=== PATIENT | male | born 1955 | race Caucasian/White ===

== ENCOUNTER 2017-05-26 19:44 | Emergency (ER) | payer BC ==
[~2017-05-26] VITALS: Ht 172.7 cm; Wt 71.7 kg
[2017-05-26 19:55] VITALS: BP 156/83
--- NOTE | 2017-05-26 20:11 | NUR ---
patient states he does not want to wait for a bed, and wants to leave [facility] to go to another hospital
--- NOTE | 2017-05-26 20:47 | NUR ---
called pt in wr, no reponse
--- NOTE | 2017-05-26 21:00 | NUR ---
CALLED FOR PT IN WR. NO RESPNSE. INFORMED BY ADMITTING STAFF PT LEFT.
== END 2017-05-26 21:01 | disposition left against medical advice (07) ==
LOC: ER 19:47
DX: Z53.21 Procedure and treatment not carried out due to patient leaving prior to being seen by health care provider (principal)
CPT/HCPCS: A4606; Z7610

== ENCOUNTER 2020-11-21 20:57 | Emergency (ER) | payer BC, MEDICARE ==
[~2020-11-21] VITALS: Ht 170.2 cm; Wt 68.0 kg
[~2020-11-21 20:57] MED LIST: CARI350T PO; DEXL60CA3 PO; DIPH50VI14 IV; HYDR-4077 PO; HYDR2DIS IV; HYDR8TAB2 PO; LACT1CAP72 PO; LORA2TAB95 PO; LORA2VIA11 IV; MINO2.5T PO; MINO2.5T2 PO; ONDA4VIA52 IV; TADA20TA PO; ZOLP10TA2 PO
--- NOTE | 2020-11-21 21:03 | NUR ---
LINDSEY FROM HOME FOR C/O L SIDED CP 02/12 SINCE LAST NIGHT. PT REPORTED PAIN RADIATING TO THE HEAD. DENIED SOB OR N/V. PT ALSO ENDORSE HE HAS RAN OUT OF DILAUDID WHICH HE IS ROUTINELY TAKING FOR "CHRONINC GNERALIZED BODY PAIN" PT WAS PLACED IN BED 10 ER , ON MONITOR. AWAITING FOR MD'S ASSESSMENT AND ORDERS.
[2020-11-21 22:14] LABS: BASOPHILS % (AUTO) 0.6 % (0.0-2.0); EOSINOPHILS % (AUTO) 0.6 % (0.0-6.0); HEMATOCRIT 34 % (39-51); HEMOGLOBIN 11.4 g/dL (13.5-17.5); LYMPHOCYTES # (AUTO) 0.8 /CMM (0.8-4.8); LYMPHOCYTES % (AUTO) 19.3 % (20.0-44.0); MEAN CORPUSCULAR HGB CONC 33 g/dl (31.0-36.0); MEAN CORPUSCULAR VOLUME 87 fL (80-96); MONOCYTES # (AUTO) 0.4 /CMM (0.1-1.30); MONOCYTES % (AUTO) 10.1 % (2.0-12.0); NEUTROPHILS # (AUTO) 2.9 /CMM (1.8-8.9); NEUTROPHILS % (AUTO) 69.4 % (43.0-81.0); PLATELET COUNT (AUTO) 230 /CMM (150-450); RED BLOOD CELL COUNT(AUTO) 3.96 MIL/uL (4.5-6.0); WHITE BLOOD COUNT (AUTO) 4.2 K/uL (4.3-11.0)
[2020-11-21 22:41] LABS: ALBUMIN 3.5 g/dL (3.4-5.0); BILIRUBIN,DIRECT 0.1 mg/dL (0.0-0.2); BILIRUBIN,TOTAL 0.3 mg/dL (0.2-1.0); CALCIUM, SERUM 8.8 mg/dL (8.5-10.1); TOTAL PROTEIN, SERUM 7.6 g/dL (6.4-8.2)
--- NOTE | 2020-11-21 22:45 | NUR ---
BROUGHT TO CT AND BACK
[2020-11-22] VITALS: BP 151/73
--- NOTE | 2020-11-22 | NUR ---
PT DENIES ANY PAIN, VSS.
--- NOTE | 2020-11-22 01:05 | NUR ---
Patient does not wish to proceed with medical care recommended by Dr. Lancaster. Patient given information related to possible complications, up to and including , which could occur as a result of leaving the hospital at this time. Patient verbalizes understanding of risks involved due to leaving against medical advice. Patient has signed AMA form.
== END 2020-11-22 01:07 | disposition left against medical advice (07) ==
LOC: ER 20:58 → UNDOADMIN 11-22 00:47 → TELE 11-22 00:47
DX: R07.9 Chest pain, unspecified (principal); Z20.822 Contact with and (suspected) exposure to COVID-19; I10 Essential (primary) hypertension; D80.2 Selective deficiency of immunoglobulin A [IgA]; R94.31 Abnormal electrocardiogram [ECG] [EKG]
CPT/HCPCS: 36415; 71045; 74176; 80048; 80076; 83880; 84484; 85025; 87081; 87426; 93005; 99285; C9803

== ENCOUNTER 2020-11-30 20:02 | Inpatient (IN) | payer MEDICARE, BC ==
[~2020-11-30] VITALS: Ht 170.2 cm; Wt 54.9 kg
--- NOTE | 2020-11-30 20:48 | NUR ---
LINDSEY FROM HOME TO ER BED 14. AAOX4. NOT IN RESP DISTRESS, BRETHING EVEN AND UNLABORED. BROUGHT IN FOR A MID-LEFT CHEST PAIN FOR THE PAST 9 DAYS. ACCORDING TO PT, THIS EPISODE STARTED LAST NIGHT. PAIN IS INTERMITENT AND RADIAITING TO LEFT ARM. PT WAS HERE ON THURSDAY TO BE ADMITTED FOR THE SAME REASON BUT HE WENT AMA. WAS AT THE BEDSIDE FOR EVAL. ORDERS RECEIVED, NOTED AND CARRIED OUT. IV LINE IS ESTABLISHED ON L WRIST 20G. BLOOD DRAWN AND GIVEN TO PHLEB. PT ON MONITOR.
[2020-11-30 20:50] VITALS: BP 163/87
[2020-11-30 20:53] LABS: CREATININE 1.1 mg/dL (0.6-1.3); POTASSIUM 4.1 mmol/L (3.5-5.1)
--- NOTE | 2020-11-30 21:10 | NUR ---
CALLED FOR COVID SWAB
[2020-11-30 21:16] LABS: HEMATOCRIT 36 % (39-51); LYMPHOCYTES # (AUTO) 0.7 /CMM (0.8-4.8); MONOCYTES # (AUTO) 0.4 /CMM (0.1-1.30); NEUTROPHILS # (AUTO) 4.1 /CMM (1.8-8.9); WHITE BLOOD COUNT (AUTO) 5.3 K/uL (4.3-11.0)
[2020-11-30 21:18] LABS: BASOPHILS % (AUTO) 0.6 % (0.0-2.0); HEMOGLOBIN 12.2 g/dL (13.5-17.5); LYMPHOCYTES % (AUTO) 14.1 % (20.0-44.0); MEAN CORPUSCULAR HGB CONC 34 g/dl (31.0-36.0); MEAN CORPUSCULAR VOLUME 86 fL (80-96); NEUTROPHILS % (AUTO) 77.3 % (43.0-81.0); PLATELET COUNT (AUTO) 222 /CMM (150-450); RED BLOOD CELL COUNT(AUTO) 4.18 MIL/uL (4.5-6.0)
--- NOTE | 2020-11-30 21:21 | NUR ---
COVID SWABBED, SENT TO LAB
--- NOTE | 2020-11-30 22:16 | NUR ---
CALL FROM LAB. RAPID COVID NEGATIVE.
--- NOTE | 2020-11-30 22:51 | NUR ---
TELE 113-1
[2020-11-30] MEDS ORDERED: ACETAMINOPHEN 325 MG TABLET PO PRN (23:00)
[2020-11-30] MEDS ORDERED: ONDANSETRON HCL/PF 4 MG/2 ML VIAL IVP PRN (23:00)
[2020-11-30] MEDS ORDERED: HYDROMORPHONE INJ 2 MG/ML DISP.SYRIN IV PRN (23:00)
[2020-11-30] MEDS ORDERED: CARISOPRODOL 350 MG TABLET PO PRN (23:00)
[2020-11-30] MEDS ORDERED: Z GUARD REMEDY 2 OZ OINT TP PRN (23:00)
[2020-11-30] MEDS ORDERED: MAGNESIUM HYDROXIDE 30 ML UDC PO PRN (23:00)
[2020-11-30] MEDS ORDERED: MAG HYDROX/AL HYDROX/SIMETH 30 ML UDC PO PRN (23:00)
[2020-11-30] MEDS ORDERED: HOME MED MISCELLANEOUS XX SCH (23:00)
[2020-11-30] MEDS ORDERED: TEMAZEPAM 15 MG CAPSULE PO PRN (23:00)
--- NOTE | 2020-11-30 23:16 | NUR ---
REPORT GIVEN TO EUN KENNEY FOR MARCELA
--- NOTE | 2020-11-30 23:37 | NUR ---
pt transproted to unit on [facility]on[facility] sewell emt and rn at bedside w/ acls protocol. nad noted during transport.
--- NOTE | 2020-12-01 00:15 | NUR ---
RN NOTE 11/30/20 3039 - RECEIVED PT FROM ER, ADMITTED TO [facility] WITH DX OF CHEST PAIN AND POSSIBLE ACS. PT COMPLAINING OF SEVERE PAIN 9/10 ON LEFT CHEST RADIATING TO LEFT ARM AND SHOULDER AND ALSO CRAMPS ON BILATERAL LEGS. DILAUDID 1MG IVP GIVEN ORDERED. PT VS BP 137/83 R 20 P 73 T 98.4. EXTERNAL TELE MONITOR APPLIED, WITH SINUS RHYTHM READING. SKIN CLEAR, INTACT. ALL SAFETY MEASURES IMPLEMENTED PER PROTOCOL. CALL LIGHT WITHIN REACH.
--- NOTE | 2020-12-01 01:00 | NUR ---
RN NOTE PT STILL COMPLAINS OF PAIN, PER PT IT DID NOT RELIEVED HIM AT ALL. SPOKE TO PT'S DAUGHTER MYLENE EARLIER REGARDING PT CHRONIC PAIN AND TAKING DILAUDID PO 8MG 4X A DAY AT HOME. SOMA 350MG PRN GIVEN. AUTO TRANSPORT DRIVER LEA NOTIFIED ABOUT THE PAIN AND AND THE DOSE OF DILAUDID AT HOME, AUTO TRANSPORT DRIVER DID NOT ORDER ADDITIONAL DOSE OF DILAUDID. PER AUTO TRANSPORT DRIVER, CONSULT WITH PAIN MANAGEMENT DOCTOR.
--- NOTE | 2020-12-01 01:32 | NUR ---
RN NOTE PATIENT SIGNED AGAINST MEDICAL ADVICE. CARLY DENISE NOTIFIED. PT PICKED UP BY DAUGHTER. NO DISTRESS NOTED. ALL BELONGINGS WERE SENT INCLUDING PHONE, WATCH AND NECKLACE.
[2020-12-01] MEDS ORDERED: PANTOPRAZOLE 40 MG TABLET.DR PO SCH (07:30)
[2020-12-01] MEDS ORDERED: ENOXAPARIN SODIUM 40 MG/0.4 ML DISP.SYRIN SQ SCH (09:00)
[2020-12-01] MEDS ORDERED: hydrALAZINE HCL 50 MG TABLET PO SCH (09:00)
[2020-12-01] MEDS ORDERED: MINOXIDIL (2.5MG) 2.5 MG TABLET PO SCH (09:00)
== END 2020-12-01 01:32 | disposition left against medical advice (07) | DRG 311 ==
LOC: ER 20:04 → TELE1 23:24
PROVIDERS: ADMIT Nurse Practitioner Acute Care; ATTEND Nurse Practitioner Acute Care
DX: I24.9 Acute ischemic heart disease, unspecified (principal); D83.9 Common variable immunodeficiency, unspecified; E87.2 Acidosis; F13.20 Sedative, hypnotic or anxiolytic dependence, uncomplicated; R07.9 Chest pain, unspecified; D63.8 Anemia in other chronic diseases classified elsewhere; F32.9 Major depressive disorder, single episode, unspecified; I10 Essential (primary) hypertension; K57.90 Diverticulosis of intestine, part unspecified, without perforation or abscess without bleeding; M19.90 Unspecified osteoarthritis, unspecified site; Z20.822 Contact with and (suspected) exposure to COVID-19; G89.4 Chronic pain syndrome; M48.00 Spinal stenosis, site unspecified; Z82.49 Family history of ischemic heart disease and other diseases of the circulatory system
CPT/HCPCS: 36415; 71045-TC; 80048-TC; 84484-TC; 85025-TC; 87081-TC; C9803; G0378; J1170

== ENCOUNTER 2021-02-21 22:24 | Inpatient (IN) | payer MEDICARE, BC ==
[~2021-02-21] VITALS: Ht 170.2 cm; Wt 50.4 kg
--- NOTE | 2021-02-21 22:35 | NUR ---
PT BIBRA 102 FROM HOME DAUGHTER STATES HE HAD A "POSSIBLE SEIZURE" SHE STATES THAT SHE "SAW HIM FOAMING AT MOUTH AND MUSCLES TENSES WITH JERKING". PT ALERT ORIENTED X2. SEIZURE PRECAUTIONS GIVEN. PT COMPLAINTS OF SOB. GIVEN O2 ORDERED.
[2021-02-21] MEDS ORDERED: ONDANSETRON HCL/PF 4 MG/2 ML VIAL ONE (22:55)
[2021-02-21] MEDS ORDERED: IV NS 0.9% 500 ML BAG IV ONE (23:00)
[2021-02-21] MEDS ORDERED: ONDANSETRON HCL/PF 4 MG/2 ML VIAL IVP ONE (23:00)
--- NOTE | 2021-02-21 23:00 | NUR ---
PT WENT TO CT
[2021-02-21 23:08] LABS: BASOPHILS % (AUTO) 0.4 % (0.0-2.0); HEMATOCRIT 34 % (39-51); HEMOGLOBIN 11.4 g/dL (13.5-17.5); LYMPHOCYTES # (AUTO) 0.5 K/uL (0.8-4.8); LYMPHOCYTES % (AUTO) 6.6 % (20.0-44.0); MEAN CORPUSCULAR HGB CONC 33 g/dl (31.0-36.0); MEAN CORPUSCULAR VOLUME 85 fL (80-96); MONOCYTES # (AUTO) 0.1 K/uL (0.1-1.30); MONOCYTES % (AUTO) 1.1 % (2.0-12.0); NEUTROPHILS # (AUTO) 7.2 K/uL (1.8-8.9); NEUTROPHILS % (AUTO) 91.9 % (43.0-81.0); PLATELET COUNT (AUTO) 298 K/uL (150-450); RED BLOOD CELL COUNT(AUTO) 4.01 MIL/uL (4.5-6.0); WHITE BLOOD COUNT (AUTO) 7.8 K/uL (4.3-11.0)
[2021-02-21 23:23] LABS: ALANINE AMINOTRANSFERASE 22 U/L (12-78); ALBUMIN 3.9 g/dL (3.4-5.0); ALCOHOL, BLOOD < 3 mg/dL (0-0); ALKALINE PHOSPHATASE 76 U/L (46-116); ASPARTATE AMINOTRANSFERASE 16 U/L (15-37); BILIRUBIN,DIRECT 0.1 mg/dL (0.0-0.2); BILIRUBIN,TOTAL 0.3 mg/dL (0.2-1.0); CALCIUM, SERUM 8.7 mg/dL (8.5-10.1); CARBON DIOXIDE 24 mmol/L (21-32); CHLORIDE 103 mmol/L (98-107); CREATININE 1.6 mg/dL (0.6-1.3); GLUCOSE 189 mg/dL (74-106); POTASSIUM 4.9 mmol/L (3.5-5.1); SODIUM SERUM 138 mmol/L (136-145); TOTAL PROTEIN, SERUM 8.6 g/dL (6.4-8.2); UREA NITROGEN, BLOOD 17 mg/dL (7-18)
--- NOTE | 2021-02-21 23:24 | NUR ---
PT UNABLE TO GIVE URINE SAMPLE. OFFERED A CATHETER TO COLLECT URINE, BUT PT REFUSES. NOTIFIED.
[2021-02-21 23:26] LABS: ACETAMINOPHEN < 2 ug/ml (10-30)
[2021-02-21 23:35] LABS: SERUM AMMONIA < 10 umol/L (11-32)
--- NOTE | 2021-02-22 02:00 | NUR ---
URINE COLLECTED AND SENT TO LAB
[2021-02-22 02:19] LABS: BILIRUBIN,URINE Negative (NEGATIVE); COLOR,URINE YELLOW (YELLOW); LEUKOCYTE ESTERASE ,URINE Negative (NEGATIVE); NITRITE, URINE Negative (NEGATIVE); PROTEIN,URINE Negative (NEGATIVE); UGLUCOSE Negative (NEGATIVE); UROBILINOGEN,URINE 0.2 EU/dL (0.2)
--- NOTE | 2021-02-22 02:38 | NUR ---
COVID SWAB COLLECTED AND SENT TO LAB
--- NOTE | 2021-02-22 02:53 | NUR ---
CALLED [facility] FOR A PANEL CALL FOR THE PATIENT. [facility] WILL TEXT JEREMIAS MALCOLM
--- NOTE | 2021-02-22 03:55 | NUR ---
report given to EUN khan
--- NOTE | 2021-02-22 04:11 | NUR ---
PT TRANSFERED PER ACLS PROTOCOL
--- NOTE | 2021-02-22 04:11 | NUR ---
JOANIEID SWABBED, SENT TO LAB.
[2021-02-22 04:30] VITALS: BP 172/70
[2021-02-22 04:35] VITALS: BP 172/70
[2021-02-22] MEDS ORDERED: MAGNESIUM HYDROXIDE 30 ML UDC PO PRN (06:00)
[2021-02-22] MEDS ORDERED: Z GUARD REMEDY 2 OZ OINT TP PRN (06:00)
[2021-02-22] MEDS ORDERED: ONDANSETRON HCL/PF 4 MG/2 ML VIAL IVP PRN (06:00)
[2021-02-22] MEDS ORDERED: MAG HYDROX/AL HYDROX/SIMETH 30 ML UDC PO PRN (06:00)
[2021-02-22] MEDS ORDERED: ACETAMINOPHEN 325 MG TABLET PO PRN (06:00)
--- NOTE | 2021-02-22 06:44 | NUR ---
PATIENT ARRIVED ON THE FLOOR FROM ER AT 0412, AWAKE, A/O X2-3. NO S/S OF DISTRESS NOTED. CALL LIGHT WITHIN REACH. BED ALARM ON. BED IN LOWEST AND LOCKED POSITION. HOB ELEVATED. NO COMPLAIN OF PAIN. NO SEIZURES NOTED. PATIENT IS RESTING COMFORTABLY IN BED.
--- NOTE | 2021-02-22 07:15 | NUR ---
RN OPENING NOTE RECEIVED PATIENT ON BED SITTING ALERT BUT NON VERBAL. PATIENT WOULD NOD APPROPRIATELY TO QUESTIONS. PATIENT WOULD TRY TO MOUTH WORDS BUT UNABLE TO MAKE SOUNDS, WHEN ASKED TO SPEAK. PATIENT ON OXYGEN AT 2LPM VIA NASAL CANULA SATURATING AT 99%. ENCOURAGED TO DO DEEP BREATHING EXERCISES. ON TELE MONITOR WITH CARDIAC READING OF SR AT 70 BPM. PATIENT WITH IV ACCESS ON RIGHT HAND G22, PATENT AND INTACT. SAFETY MEASURES IN PLACE: BED LOCKED AND IN LOWEST POSITION, CALL LIGHT WITHIN REACH, SIDE RAILS UP. ISOLATION PRECAUTION IN PLACE. WILL MONITOR PATIENT CLOSELY.
[2021-02-22 08:00] VITALS: BP 156/70
[2021-02-22] MEDS: PANTOPRAZOLE 40 MG TABLET.DR PO SCH (08:05)
[2021-02-22] MEDS ORDERED: PANTOPRAZOLE 40 MG TABLET.DR PO SCH (08:55)
[2021-02-22] MEDS ORDERED: FUROSEMIDE 20 MG/2 ML VIAL IV SCH (09:00)
[2021-02-22] MEDS ORDERED: NITROGLYCERIN 30 GM TUBE TP SCH ×2 (09:00→21:00)
[2021-02-22 10:05] LABS: BASOPHILS % (AUTO) 0.2 % (0.0-2.0); HEMATOCRIT 32 % (39-51); HEMOGLOBIN 10.7 g/dL (13.5-17.5); LYMPHOCYTES # (AUTO) 0.8 K/uL (0.8-4.8); LYMPHOCYTES % (AUTO) 6.5 % (20.0-44.0); MEAN CORPUSCULAR HGB CONC 34 g/dl (31.0-36.0); MEAN CORPUSCULAR VOLUME 85 fL (80-96); MONOCYTES # (AUTO) 0.8 K/uL (0.1-1.30); MONOCYTES % (AUTO) 6.6 % (2.0-12.0); NEUTROPHILS # (AUTO) 10.3 K/uL (1.8-8.9); NEUTROPHILS % (AUTO) 86.7 % (43.0-81.0); PLATELET COUNT (AUTO) 242 K/uL (150-450); RED BLOOD CELL COUNT(AUTO) 3.75 MIL/uL (4.5-6.0); WHITE BLOOD COUNT (AUTO) 11.9 K/uL (4.3-11.0)
[2021-02-22 10:15] LABS: ALBUMIN 3.7 g/dL (3.4-5.0); BILIRUBIN,TOTAL 0.4 mg/dL (0.2-1.0); CALCIUM, SERUM 8.7 mg/dL (8.5-10.1); CREATININE 1.1 mg/dL (0.6-1.3); MAGNESIUM 2.6 mg/dL (1.8-2.4); PHOSPHORUS 4.3 mg/dL (2.5-4.9); POTASSIUM 4.5 mmol/L (3.5-5.1); TOTAL PROTEIN, SERUM 7.7 g/dL (6.4-8.2)
[2021-02-22] MEDS: hydrALAZINE HCL 50 MG TABLET PO SCH ×2 (10:23→17:23)
[2021-02-22] MEDS: LACTOBACILLUS RHAMNOSUS GG 1 EACH CAP.SPRINK PO SCH (10:23)
[2021-02-22 12:00] VITALS: BP 150/69
[2021-02-22] MEDS: LEVETIRACETAM (500MG) 500 MG in IV NS 0.9% 100 ML IV SCH (13:11)
[2021-02-22 16:00] VITALS: BP 123/56
[2021-02-22] MEDS: PROSOURCE / PROSTAT (PYXIS) 30 ML UDC PO SCH (17:19)
--- NOTE | 2021-02-22 19:00 | NUR ---
RN OPENING NOTE PATIENT ON BED ALERT BUT NON VERBAL. PATIENT WOULD NOD APPROPRIATELY TO QUESTIONS. PATIENT WOULD TRY TO MOUTH WORDS BUT UNABLE TO MAKE SOUNDS, WHEN ASKED TO SPEAK. PATIENT ON OXYGEN AT 2LPM VIA NASAL CANULA SATURATING AT 99%. ENCOURAGED TO DO DEEP BREATHING EXERCISES. ON TELE MONITOR WITH CARDIAC READING OF SR AT 70 BPM. PATIENT WITH IV ACCESS ON RIGHT HAND G22, PATENT AND INTACT. SAFETY MEASURES IN PLACE: BED LOCKED AND IN LOWEST POSITION, CALL LIGHT WITHIN REACH, SIDE RAILS UP. ISOLATION PRECAUTION IN PLACE. WILL ENDORSE PATIENT TO NEXT SHIFT FOR CONTINUIY OF CARE. Addendum: 02/22/21 at 1929 by TRAVIS GE RN RN CLOSING NOTE
[2021-02-22 20:00] VITALS: BP 117/56
[2021-02-23] VITALS: BP 147/63
[2021-02-23] MEDS ORDERED: LEVETIRACETAM (500MG) 500 MG/5 ML VIAL IV ONE (00:14)
[2021-02-23] MEDS: LEVETIRACETAM (500MG) 500 MG in IV NS 0.9% 100 ML IV SCH ×2 (00:18→12:03)
[2021-02-23 04:00] VITALS: BP 126/69
--- NOTE | 2021-02-23 06:42 | NUR ---
WOOD HANDLER CLOSING NOTE PT IS AWAKE IN BED. A/O X1, ABLE TO FOLLOW SIMPLE COMMANDS. PT IS CONFUSED AT TIMES. PT ON 1.5LPM O2 VIA NC SATURATING AT 99%. NO SOB OR S/S OF RESPIRATORY DISTRESS NOTED. PT ON EXTERNAL CARDIAC READING SR AT 80 BPM. IV ACCESS IS INTACT, PATENT, AND FLUSHING WELL. ALL NEEDS HAVE BEEN MET. SAFETY, SEIZURE, AND ISOLATION PRECAUTIONS MAINTAINED AT ALL TIMES. BED IN LOWEST LOCKED POSITION, HOB ELEVATED, SIDE RAILS UP X2. CALL LIGHT AND TABLE WITHIN REACH. WILL ENDORSE TO ONCOMING NURSE FOR MARCELA.
[2021-02-23 06:52] LABS: BASOPHILS % (AUTO) 0.3 % (0.0-2.0); EOSINOPHILS % (AUTO) 0.3 % (0.0-6.0); HEMATOCRIT 38 % (39-51); HEMOGLOBIN 12.6 g/dL (13.5-17.5); LYMPHOCYTES # (AUTO) 0.6 K/uL (0.8-4.8); LYMPHOCYTES % (AUTO) 7.7 % (20.0-44.0); MEAN CORPUSCULAR HGB CONC 33 g/dl (31.0-36.0); MEAN CORPUSCULAR VOLUME 85 fL (80-96); MONOCYTES # (AUTO) 0.4 K/uL (0.1-1.30); MONOCYTES % (AUTO) 5.2 % (2.0-12.0); NEUTROPHILS # (AUTO) 7.3 K/uL (1.8-8.9); NEUTROPHILS % (AUTO) 86.5 % (43.0-81.0); PLATELET COUNT (AUTO) 258 K/uL (150-450); RED BLOOD CELL COUNT(AUTO) 4.44 MIL/uL (4.5-6.0); WHITE BLOOD COUNT (AUTO) 8.4 K/uL (4.3-11.0)
[2021-02-23 06:57] LABS: CALCIUM, SERUM 9.2 mg/dL (8.5-10.1); CREATININE 1.1 mg/dL (0.6-1.3); MAGNESIUM 2.6 mg/dL (1.8-2.4); PHOSPHORUS 3.8 mg/dL (2.5-4.9); POTASSIUM 3.9 mmol/L (3.5-5.1)
[2021-02-23 06:59] LABS: THYROID STIMULATING HORMONE 1.041 uIU/mL (0.358-3.74)
--- NOTE | 2021-02-23 07:29 | NUR ---
received awake ,confused pulling out lines,primary rn obtained sitter order.fall risk precaution observed.
[2021-02-23] MEDS: PANTOPRAZOLE 40 MG TABLET.DR PO SCH (08:12)
[2021-02-23] MEDS: LACTOBACILLUS RHAMNOSUS GG 1 EACH CAP.SPRINK PO SCH (08:26)
[2021-02-23] MEDS: ATORVASTATIN 10 MG TABLET PO SCH (08:26)
[2021-02-23] MEDS: PROSOURCE / PROSTAT (PYXIS) 30 ML UDC PO SCH ×2 (08:27→17:00)
[2021-02-23] MEDS: hydrALAZINE HCL 50 MG TABLET PO SCH ×2 (08:27→18:33)
[2021-02-23 09:02] VITALS: BP 157/74
--- NOTE | 2021-02-23 09:05 | NUR ---
SITTER AT BEDSIDE ,PATIENT CONFUSED JUMPING OFF BED,FOOT AT SIDERAIL ,SPIT PO MEDS AND REFUSED BREAKFAST,LEA DENISE NOTIFIED ABOUT BEHAVIUOR NEW ORDERS LEFT AND CARRIED OUT.ALSO REQUESTED MIDLINE.
[2021-02-23] MEDS: LORAZEPAM INJ 2 MG/ML VIAL IV PRN ×2 (09:16→21:00)
--- NOTE | 2021-02-23 09:41 | NUR ---
calm post ativan given,sitter at bedside,will continue to monitor.
[2021-02-23] MEDS ORDERED: QUETIAPINE FUMARATE 25 MG TABLET PO SCH (11:00)
[2021-02-23] MEDS ORDERED: HYDROCODONE/APAP 5/325MG TABLET PO PRN (11:00)
--- NOTE | 2021-02-23 11:04 | NUR ---
AWAKE ,RESTLESS KICKING SITTER AAND JUMPING OFF BED,SEEN BY LEA YARD COUPLER AT BEDSIDE INITIATED RESTRAINT,AWAITS PSYCHE EVAL,WILL CONTINUE TO MONITO, YARD COUPLER SPOKE WITH THE FAMILY VIA PHONE UPDATED WITH PT. CONDITION.
[2021-02-23 12:14] VITALS: BP 117/61
[2021-02-23 16:00] VITALS: BP 154/59
[2021-02-23] MEDS ORDERED: OLANZAPINE ZYDIS 5 MG TAB.RAPDIS PO PRN (16:00)
--- NOTE | 2021-02-23 16:00 | NUR ---
REPORT GIVEN TO POLI HAQ FOR CONTINUITY OF CARE.
[2021-02-23] MEDS: OLANZAPINE ZYDIS 5 MG TAB.RAPDIS SL PRN (16:42)
--- NOTE | 2021-02-23 19:14 | NUR ---
RN Note: Report given to PM shift RN for continuity of care. No any significant changes noted during shift.
--- NOTE | 2021-02-23 19:30 | NUR ---
RN OPENING NOTES: RECEIVED PT A/OX2 IN BED RESTING COMFORTABLY. PATIENT IN NO S/SX OF ACUTE DISTRESS AT THIS TIME. NO SOB NOTED. PATIENT'S BREATHING IS EVEN AND UNLABORED. PATIENT IS ON 1.5L OF OXYGEN VIA NC; TOLERATING WELL. PATIENT ON TELE MONITORING READING SINUS RHYTHM HR IS @80s AT THE TIME OF RECEIVED. PATIENT ON CARDIAC DIET; TOLERATES WELL. NOTED IV SITE ON L HAND #24 AND R UA MID#18 ;BOTH PATENT, INTACT AND FLUSHING WELL; NO S/S OF INFECTION OR INFILTRATION. PT WITH BILATERAL SOFT RESTRAINTS IN PLACED, MONITORED AND ASSESSED PER PROTOCOL.SAFETY MEASURES HAVE BEEN PROVIDED AND IMPLEMENTED. PATIENT BED ALARM IS ON. HEAD OF BED ELEVATED. BED IS LOCKED, IN LOWEST POSITION AND SIDE RAILS UP. CALL LIGHT WITHIN REACH OF THE PATIENT. APPLICABLE ISOLATION PRECAUTIONS IN PLACE. WILL CONTINUE TO MONITOR AND REASSESS FOR ANY CHANGES AND WILL CARRY OUT ANY ONGOING AND ACTIVE MD ORDER.
[2021-02-23 20:00] VITALS: BP 129/60
--- NOTE | 2021-02-23 21:00 | NUR ---
RN NOTES PT NOTED TO BE RESTLESS AND ANXIOUS, PRN ATIVAN GIVEN PER INDICATION. IRON POURER MADE AWARE. WILL CONTINUE TO ASSESS AND MONITOR THROUGHOUT THE SHIFT.
[2021-02-23] MEDS ORDERED: POLYETHYLENE GLYCOL 3350 17 GM POWD.PACK PO SCH (22:00)
[2021-02-24] VITALS: BP 117/68
[2021-02-24] MEDS: LEVETIRACETAM (500MG) 500 MG in IV NS 0.9% 100 ML IV SCH ×2 (00:33→13:13)
--- NOTE | 2021-02-24 02:00 | NUR ---
RN NOTES PT NOTED FOR ANOTHER EPISODE OF RESTLESSNESS AND AGITATION; PRN ZYPREXIA GIVEN PER INDICATION. OUTBOUND TELEMARKETING REPRESENTATIVE MADE AWARE. WILL CONTINUE TO ASSESS AND MONITOR THROUGHOUT THE SHIFT.
[2021-02-24] MEDS: OLANZAPINE ZYDIS 5 MG TAB.RAPDIS SL PRN ×2 (02:02→15:32)
[2021-02-24 04:00] VITALS: BP 136/72
--- NOTE | 2021-02-24 04:00 | NUR ---
RN NOTES NO NOTED CHANGES IN PATIENT CONDITION AT THIS TIME; PATIENT VITALS STABLE, NO SIGNS OF ACUTE RESPIRATORY DISTRESS. AM PATIENT CARE RENDERED. SUPERVISOR TYPE DISK QUALITY CONTROL MADE AWARE. WILL CONTINUE TO MONITOR AND REASSESS FOR ANY CHANGES THROUGHOUT THE SHIFT.
[2021-02-24] MEDS: LORAZEPAM INJ 2 MG/ML VIAL IV PRN (05:10)
--- NOTE | 2021-02-24 05:10 | NUR ---
RN NOTES PT NOTED TO BE RESTLESS AND ANXIOUS, PRN ATIVAN GIVEN PER INDICATION. MOVIE THEATER MANAGER MADE AWARE. WILL CONTINUE TO ASSESS AND MONITOR THROUGHOUT THE SHIFT.
--- NOTE | 2021-02-24 07:06 | NUR ---
RN CLOSING NOTE: PATIENT REMAINS IN ROOM IN NO SIGNS OF RESPIRATORY DISTRESS, PATIENT STILL ON 1.5OF 02 VIA NC ;TOLERATING WELL SATURATING @ >95% SP02. SAFETY MEASURES IMPLEMENTED, BED IN LOWEST POSITION, LOCKED, SIDE RAILS UP, CALL LIGHT WITHIN REACH. ALL NEEDS AND ORDERS ADDRESSED DURING THE SHIFT. IV ACCESS MAINTAINED INTACT, SECURED AND FLUSHING WELL. ALL DUE MEDS GIVEN ORDERED & SCHEDULED ; PATIENT TOLERATED WELL. PATIENT KEPT CLEAN AND COMFORTABLE WITHIN THE SHIFT. PATIENT ENDORSED TO INCOMING SHIFT RN WITH STABLE VITAL SIGN AND FOR CONTINUITY OF CARE.
--- NOTE | 2021-02-24 07:51 | NUR ---
SERVICE CAR DRIVER NOTES PATIENT IN BED, ALERT WITH CONFUSION. 1.5L OXYGEN, NO SOB NOTED AT THIS TIME. ON TELE MONITOR SR, HR 62. PT ON SOFT RESTRAINT FOR PATIENT SAFETY, CIRCULATION CHECKS, SKIN WARM AND DRY. PT HAS LEFT UPPER ARM MIDLINE IN PLACE, LEFT HAND HEP LOCK IN TACT. BED IN LOWEST AND LOCKED POSITION, CALL LIGHT WITHIN REACH, SAFETY MEASURES OBSERVED, WILL CONTINUE TO MONITOR.
[2021-02-24 08:00] VITALS: BP 149/73
[2021-02-24] MEDS: PANTOPRAZOLE 40 MG TABLET.DR PO SCH (08:46)
[2021-02-24] MEDS: ATORVASTATIN 10 MG TABLET PO SCH (08:46)
[2021-02-24] MEDS: LACTOBACILLUS RHAMNOSUS GG 1 EACH CAP.SPRINK PO SCH (08:46)
[2021-02-24] MEDS: PROSOURCE / PROSTAT (PYXIS) 30 ML UDC PO SCH ×2 (08:47→16:41)
[2021-02-24] MEDS: hydrALAZINE HCL 50 MG TABLET PO SCH ×2 (08:47→16:41)
--- NOTE | 2021-02-24 10:50 | NUR ---
MOVIE EXTRA NOTES LEA RN BELLHOP SERVICE CAPTAIN AT BEDSIDE. AWARE OF PT'S CONDITION. FACE TO FACE ASSESSMENT DONE. PER LEA, OKAY TO RENEW SOFT WRIST RESTRAINTS. ABLE TO MAKE BM, KEEP CLEAN AND DRY.
[2021-02-24 11:17] LABS: BASOPHILS % (AUTO) 0.4 % (0.0-2.0); EOSINOPHILS % (AUTO) 0.6 % (0.0-6.0); HEMATOCRIT 38 % (39-51); HEMOGLOBIN 12.8 g/dL (13.5-17.5); LYMPHOCYTES # (AUTO) 0.7 K/uL (0.8-4.8); LYMPHOCYTES % (AUTO) 6.6 % (20.0-44.0); MEAN CORPUSCULAR HGB CONC 34 g/dl (31.0-36.0); MEAN CORPUSCULAR VOLUME 85 fL (80-96); MONOCYTES # (AUTO) 0.5 K/uL (0.1-1.30); MONOCYTES % (AUTO) 5.1 % (2.0-12.0); NEUTROPHILS # (AUTO) 8.7 K/uL (1.8-8.9); NEUTROPHILS % (AUTO) 87.3 % (43.0-81.0); PLATELET COUNT (AUTO) 237 K/uL (150-450); RED BLOOD CELL COUNT(AUTO) 4.46 MIL/uL (4.5-6.0)
[2021-02-24 12:00] VITALS: BP 130/68
[2021-02-24 12:02] LABS: CREATININE 1.1 mg/dL (0.6-1.3); MAGNESIUM 2.7 mg/dL (1.8-2.4); POTASSIUM 4.2 mmol/L (3.5-5.1)
--- NOTE | 2021-02-24 15:00 | NUR ---
SCUBA DIVING TEACHER NOTE ROUNDS MADE , ALL NEEDS ATTENDED, MADE ABM KEEP CLEAN DRY , WILL CONT TO MONIOTR
--- NOTE | 2021-02-24 15:52 | NUR ---
CAMPUS RECRUITING INTERN NOTE BECOME AGITATED , YELLING OUT TRYING TO GET OUT OFF BED ZYPREXA SL GIVEN ORDERED ,WILL F\U
[2021-02-24 16:00] VITALS: BP 129/73
--- NOTE | 2021-02-24 16:00 | NUR ---
ELECTRIC TRIPPER MACHINE OPERATOR NOTE UNABLE TO REMOVE SOFT RESTRAIN, PATIENT STILL AT RISK FOR FALL, WILL CONT TO MONITOR
--- NOTE | 2021-02-24 17:15 | NUR ---
HURL SHAKER NOTES DR. SERNA PAIN MANAGEMENT AT BEDSIDE. AWARE THAT PT WAS TAKING DILAUDID BEFORE. NEW ORDER GIVEN. NEW ORDER CARRIED OUT
[2021-02-24] MEDS ORDERED: HYDROMORPHONE HCL 2 MG TABLET PO PRN (17:30)
--- NOTE | 2021-02-24 18:38 | NUR ---
SENIOR MANUFACTURING ENGINEER NOTES PT IN BED HAVING DINNER, CLEAN AND DRY. ON N/C 1.5. NO SOB NOTED, TELE MONITOR SINUS RHYTHM. NEW CONDOM CATHETER CHANGED, URINE YELLOW COLOR. FED BY ROAD GANG SUPERVISOR. ABLE TO EAT WELL. BED IN LOWEST LOCKED POSITION, NOT IN DISTRESS, CALL LIGHT IN REACH.
--- NOTE | 2021-02-24 19:30 | NUR ---
RN NOTE RECEIVED PATIENT IN BED ALERT ORIENTED X2 VERBALLY RESPONSIVE ON 1.5 OXYGEN VIA NASAL CANNULA, O2:97% IV SITE IS ON LEFT HAND AND RIGHT UPPER ARM MIDLINE INTACT PATENT,[place]DE CONDOM CATHETER IN PLACE URINE DRAINING YELLOW AND CLEAR BY GRAVITY,SAFETY MEASURE IMPLEMENT BED IN LOW POSITION AND LOCKED,CALL LIGHT WITHIN REACH CONTINUE TO MONITOR.
[2021-02-24] MEDS: HYDROMORPHONE HCL 2 MG TABLET PO PRN (19:53)
[2021-02-24 20:00] VITALS: BP 120/54
[2021-02-24] MEDS: LEVETIRACETAM (250 MG) 250 MG TABLET PO SCH (20:02)
[2021-02-24] MEDS: ZOLPIDEM TARTRATE 5 MG TABLET PO PRN (23:48)
[2021-02-25] VITALS: BP 138/69
[2021-02-25 04:00] VITALS: BP 98/57
--- NOTE | 2021-02-25 06:30 | NUR ---
RN NOTE PATIENT REMAINS ALERT ORIENTED X2 VERBALLY RESPONSIVE NO SOB NOT ACUTE DISTRESS NOTED HE IS ON 1.5 L OXYGEN VIA NASAL CANNULA O2:98% ALL DUE MEDS GIVEN MD ORDERED KEPT CLEAN AND DRY ALL THE TIME,ALL NEEDS MET ENDORSE NEXT COMING SHIFT FOR CONTINUATION OF CARE
[2021-02-25 06:57] LABS: BASOPHILS % (AUTO) 0.5 % (0.0-2.0); EOSINOPHILS % (AUTO) 2.2 % (0.0-6.0); HEMATOCRIT 36 % (39-51); LYMPHOCYTES # (AUTO) 0.9 K/uL (0.8-4.8); MEAN CORPUSCULAR HGB CONC 34 g/dl (31.0-36.0); MEAN CORPUSCULAR VOLUME 84 fL (80-96); MONOCYTES # (AUTO) 0.4 K/uL (0.1-1.30); MONOCYTES % (AUTO) 7.5 % (2.0-12.0); NEUTROPHILS # (AUTO) 3.7 K/uL (1.8-8.9); NEUTROPHILS % (AUTO) 71.8 % (43.0-81.0); PLATELET COUNT (AUTO) 221 K/uL (150-450); RED BLOOD CELL COUNT(AUTO) 4.22 MIL/uL (4.5-6.0); WHITE BLOOD COUNT (AUTO) 5.2 K/uL (4.3-11.0)
[2021-02-25 07:20] LABS: CALCIUM, SERUM 8.7 mg/dL (8.5-10.1); POTASSIUM 3.6 mmol/L (3.5-5.1)
--- NOTE | 2021-02-25 07:47 | NUR ---
RN OPENING NOTE Pt is asleep, alert to verbal and tactile stimuli, no SOB, no respiratory distress, Safety precautions implemented, bed locked in lowest position, call light within reach.
[2021-02-25 08:00] VITALS: BP 132/57
[2021-02-25] MEDS: ATORVASTATIN 10 MG TABLET PO SCH (09:21)
[2021-02-25] MEDS: LEVETIRACETAM (250 MG) 250 MG TABLET PO SCH ×2 (09:21→20:51)
[2021-02-25] MEDS: LACTOBACILLUS RHAMNOSUS GG 1 EACH CAP.SPRINK PO SCH (09:21)
[2021-02-25] MEDS: PROSOURCE / PROSTAT (PYXIS) 30 ML UDC PO SCH ×2 (09:23→16:18)
[2021-02-25] MEDS: hydrALAZINE HCL 50 MG TABLET PO SCH ×2 (09:23→16:18)
[2021-02-25] MEDS: PANTOPRAZOLE 40 MG TABLET.DR PO SCH (09:25)
[2021-02-25 11:07] LABS: *SPE A/G RATIO 0.8 (0.7-1.7); *SPE ALPHA-1-GLOBULIN 0.3 g/dL (0.0-0.4); *SPE ALPHA-2-GLOBULIN 0.8 g/dL (0.4-1.0); *SPE BETA GLOBULIN 1.4 g/dL (0.7-1.3); *SPE M-SPIKE Not Observed g/dL (Not Observed)
[2021-02-25 12:00] VITALS: BP 133/54
[2021-02-25 16:00] VITALS: BP 133/54
--- NOTE | 2021-02-25 18:53 | NUR ---
RN CLOSING NOTE Pt is A/O X 2 with periods of disorientation. No respiratory distress, no SOB. compliant with medications, asleep for most of shift, denies any pain, no episodes of pulling lines, nor aggressive behavior. Left hand/SHANTANU Midline patent with no s/sx of infiltration. Tele sinus rhtythm. Safety precautions implemented, bed locked in lowest position, call light within reach.
--- NOTE | 2021-02-25 19:45 | NUR ---
RN NOTE PATIENT RESTING IN BED. ALERT AND ORIENTED X2, PERIODS OF CONFUSION. ON ROOM AIR, RESPIRATIONS EVEN AND UNLABORED. NO SIGNS OF DISCOMFORT. IV ACCESS ON LEFT HAND #24 AND SHANTANU MIDLINE PATENT AND INTACT. SAFETY MEASURES IMPLEMENTED. CALL LIGHT WITHIN REACH. ALL NEEDS ANTICIPATED.
[2021-02-25 20:00] VITALS: BP_SYST 140; BP_SYST 143; BP_DIAS 61; BP_DIAS 72
[2021-02-25] MEDS: ZOLPIDEM TARTRATE 5 MG TABLET PO PRN (20:51)
[2021-02-26] VITALS: BP 143/72
[2021-02-26 04:00] VITALS: BP 146/82
--- NOTE | 2021-02-26 06:55 | NUR ---
RN NOTE PATIENT RESTING IN BED. ON ROOM AIR, RESPIRATIONS EVEN AND UNLABORED. NO SIGNS OF DISCOMFORT. IV ACCESS ON LEFT HAND #24 AND SHANTANU MIDLINE PATENT AND INTACT. ALL DUE MEDS GIVEN ORDERED. SAFETY MEASURES IMPLEMENTED. CALL LIGHT WITHIN REACH. WILL ENDORSE TO AM SHIFT.
--- NOTE | 2021-02-26 07:21 | NUR ---
RN NOTE PT FOUND IN SEMI FOWLERS POSITION DISPLAYING NO S/S OF ACUTE DISTRESS, PT IS BREATHING EVEN AND UNLABORED AND ENDORSING NO PAIN. PT IS A&OX2 WITH ELEMENTS OF CONFUSION. SR ON THE MONITOR. R UA MIDLINE IN PLACE, PATIENT AND INTACT. SAFETY MEASURES IN PLACE, BED LOCKED AND IN LOWEST POSITION, SIDE RAILS UPX3, CALL LIGHT WITHIN REACH, BED ALARM ARMED. WILL CONTINUE TO MONITOR.
[2021-02-26] MEDS: HYDROMORPHONE HCL 2 MG TABLET PO PRN ×2 (07:53→17:52)
[2021-02-26 08:00] VITALS: BP 163/84
[2021-02-26] MEDS: PROSOURCE / PROSTAT (PYXIS) 30 ML UDC PO SCH ×2 (08:17→17:21)
[2021-02-26] MEDS: hydrALAZINE HCL 50 MG TABLET PO SCH ×2 (08:18→17:22)
[2021-02-26] MEDS: LACTOBACILLUS RHAMNOSUS GG 1 EACH CAP.SPRINK PO SCH (08:18)
[2021-02-26] MEDS: ATORVASTATIN 10 MG TABLET PO SCH (08:18)
[2021-02-26] MEDS: PANTOPRAZOLE 40 MG TABLET.DR PO SCH (08:18)
[2021-02-26] MEDS: LEVETIRACETAM (250 MG) 250 MG TABLET PO SCH ×2 (08:18→20:45)
[2021-02-26] MEDS: LORAZEPAM INJ 2 MG/ML VIAL IV PRN ×2 (10:41→20:44)
[2021-02-26] MEDS ORDERED: PROCHLORPERAZINE EDISYLATE 10 MG/2 ML VIAL IM PRN (11:00)
--- NOTE | 2021-02-26 11:56 | NUR ---
PT TRANSFER PT MOVED TO 313, RN GAVE REPORT TO MED/HARVEST MANAGER AT BED SIDE. CHART GIVEN, BELONGINGS TRACKED, SBAR GIVEN. ALL QUESTIONS ANSWERED.
[2021-02-26 12:00] VITALS: BP 150/79
--- NOTE | 2021-02-26 12:30 | NUR ---
TELE/RN NOTES RECEIVED REPORT FROM [facility] NURSE. PATIENT IS ALERT AND ORIENTED X2. PATIENT IN ROOM AIR. PATIENT IN NO APPARENT RESPIRATORY DISTRESS NOTED. NO COMPLAINED OF PAIN NOTED AT THIS TIME. WILL CONTINUE TO MONITOR.
[2021-02-26] MEDS ORDERED: METOPROLOL TARTRATE INJ 5 MG/5 ML AMPUL ONE ×2 (14:02→14:06)
--- NOTE | 2021-02-26 14:05 | NUR ---
RN NOTES PATIENT IS OUT IN THE UNIT PICK BY JOVANI HAQ FOR CTA HEART.
[2021-02-26] MEDS ORDERED: CT SWABBABLE VALVE TRANS SET 1 EA INFUS.SET MC ONE (14:06)
[2021-02-26] MEDS ORDERED: IV NS 0.9% 250 ML IV ONE (14:06)
[2021-02-26] MEDS ORDERED: IOHEXOL-350 100 ML VIAL IV ONE (14:06)
[2021-02-26] MEDS: METOPROLOL TARTRATE INJ 5 MG/5 ML AMPUL IVP PRN ×2 (14:08→14:13)
--- NOTE | 2021-02-26 14:17 | NUR ---
pt's sister signed consent for CTA heart; pt AAOx4 denies CP/SOB; Metoprolol 5 mg IVP given x 2 doses; No NTG given as pt is allergic to NTG; VSStolerated procedure ; report given to Idris HAQ ; sent back to floor via bed
--- NOTE | 2021-02-26 14:32 | NUR ---
RN NOTES PATIENT CAME IN THE UNIT NO SOB NOTED, NO COMPLAINED OF PAIN NOTED AT THIS TIME. WILL CONTINUE TO MONITOR.
[2021-02-26 16:14] VITALS: BP 140/69
--- NOTE | 2021-02-26 18:54 | NUR ---
TELE/RN CLOSING NOTES PATIENT IS ON BED ALERT AND ORIENTED X3. PATIENT IS ON ROOM AIR. PATIENT IN NO APPARENT RESPIRATORY DISTRESS NOTED. NO COMPLAINED OF PAIN NOTED AT THIS TIME. SEEN AND EXAMINED BY MD WITH ORDERS MADE AND CARRIED OUT. ALL DUE MEDICATIONS WAS GIVEN. TELE MONITOR READING SINUS RHYTHM 77 BPM. IV ACCESS AT RIGHT UPPER MIDLINE PATENT AND INTACT. SAFETY PRECAUTION WAS IN PLACED. BED IN LOWEST POSITION AND LOCKED. CALL LIGHT WITHIN REACH. WILL ENDORSED TO PUMP SERVICE SUPERVISOR FOR MARCELA.
--- NOTE | 2021-02-26 19:00 | NUR ---
ROPE LAYING MACHINE OPERATOR OPENING NOTE RECEIVED PT AWAKE IN BED. A/OX4. PT STABLE ON RA, SR @ 79, NO SOB OR RESPIRATORY DISTRESS NOTED. NO C/O PAIN AT THIS TIME. IV ACCESS IN SHANTANU MIDLINE. IV IS INTACT, PATENT AND FLUSHING WELL. SAFETY MEASURES MAINTAINED AT ALL TIMES. BED IN LOWEST LOCKED POSITION, HOB ELEVATED, SIDE RAILS UPX2. CALL LIGHT AND TABLE WITHIN REACH. WILL CONTINUE WITH PLAN OF CARE.
[2021-02-26 20:00] VITALS: BP 127/67
--- NOTE | 2021-02-26 20:15 | NUR ---
REPORT FROM RADIOLOGIST VIA CHARGE NURSE, JEREMIAH. CRITICAL REPORT RECEIVED , DR JAFFE NOTIFIED. WILL CONTINUE WITH POC.
--- NOTE | 2021-02-26 20:44 | NUR ---
PT C/O ANXIETY, PER PT REQUEST ATIVAN 1MG(0.5ML) IV Q8H PRN ADMINISTERED AT THIS TIME PER ORDER. WILL CONTINUE TO MONITOR.
[2021-02-26] MEDS: ZOLPIDEM TARTRATE 5 MG TABLET PO PRN (22:48)
--- NOTE | 2021-02-26 22:48 | NUR ---
PT C/O INABILITY TO SLEEP, PER PT REQUEST AMBIEN 5MG PO HS PRN ADMINISTERED AT THIS TIME PER ORDER. WILL CONTINUE TO MONITOR.
[2021-02-27] VITALS: BP 140/73
[2021-02-27 04:00] VITALS: BP 130/73
--- NOTE | 2021-02-27 06:30 | NUR ---
PT DIDNOT HAVE ANY BOWEL MOVEMENT. NO STOOL SAMPLE COLLECTED. WILL ENDORSE TO MORNING NURSE
--- NOTE | 2021-02-27 06:30 | NUR ---
RN CLOSING NOTE PT IS IN BED, EASILY AROUSED. A/OX4. PT IS STABLE ON RA. NO SOB OR RESPIRATORY DISTRESS NOTED. PT IS AMBULATORY WITH BRP. IV ACCESS IS INTACT, PATENT, AND FLUSHING WELL. ALL NEEDS HAVE BEEN MET. ALL CARE, NEEDS, MEDICATIONS, AND TREATMENT ADMINISTERED ANTICIPATED PER ORDER. PT ENCOURAGED TO REPOSITION Q2H AND PRN. SAFETY, SEIZURE, AND ASPIRATION PRECAUTIONS MAINTAINED AT ALL TIMES. BED IN LOWEST LOCKED POSITION, HOB ELEVATED, SIDE RAILS UP X2. CALL LIGHT AND TABLE WITHIN REACH. WILL ENDORSE TO ONCOMING NURSE FOR MARCELA.
[2021-02-27] MEDS: PANTOPRAZOLE 40 MG TABLET.DR PO SCH (07:33)
--- NOTE | 2021-02-27 07:37 | NUR ---
TELE/RN OPENING NOTES RECEIVED PATIENT SLEEPING ALERT AND ORIENTEDX3. PATIENT IS ON ROOM AIR. PATIENT IN NO APPARENT RESPIRATORY DISTRESS NOTED. NO COMPLAINED OF PAIN AT THIS TIME. TELE MONITOR READING SINUS PADMINI 53 BPM. WILL CONTINUE TO MONITOR.
[2021-02-27 08:00] VITALS: BP 165/70
[2021-02-27] MEDS: LEVETIRACETAM (250 MG) 250 MG TABLET PO SCH ×2 (08:21→21:06)
[2021-02-27] MEDS: ATORVASTATIN 10 MG TABLET PO SCH (08:21)
[2021-02-27] MEDS: hydrALAZINE HCL 50 MG TABLET PO SCH ×2 (08:23→16:41)
[2021-02-27] MEDS: LACTOBACILLUS RHAMNOSUS GG 1 EACH CAP.SPRINK PO SCH (08:23)
[2021-02-27] MEDS: PROSOURCE / PROSTAT (PYXIS) 30 ML UDC PO SCH ×2 (08:26→16:41)
--- NOTE | 2021-02-27 10:25 | NUR ---
TELE/RN NOTES DISCONTINUE COLLECTION OF STOOL FOR C-DIFF PER LEA DENISE DNP NOTED AND CARRIED OUT.
--- NOTE | 2021-02-27 10:36 | NUR ---
Industrial Electrical Engineer note: Industrial Electrical Engineer consultation received. Patient was admitted to [facility] on 02/22/21 from home, where he lives with his daughter. Per case management, patient has been referred to [facility] for discharge planning. Industrial Electrical Engineer will remain available, as needed.
[2021-02-27] MEDS ORDERED: LEVE500T9 PO (10:54)
--- NOTE | 2021-02-27 13:01 | NUR ---
RN NOTES JAMES GARCIA CONSENT FOR LEFT HEART CATHETERIZATION, SELECTIVE CORONARY ANGIOGRAPHY, LEFT VENTRICULOGRAM, POSSIBLE RIGHT HEART CATHETERIZATION, POSSIBLE INTRA-AORTIC BALLOON PUMP INSERTION, POSSIBLE CORONARY ANGIOPLASTY, POSSIBLE CORONARY STENT PLACEMENT, POSSIBLE CORONARY ATHERECTOMY, POSSIBLE ILIAC INJECTION, POSSIBLE ILIAC ARTERY ANGIOGRAM, POSSIBLE BILATERAL RENAL ANGIOGRAM, POSSIBLE ABDOMINAL ANGIOGRAM, POSSIBLE MODERATE SEDATION. NPO POST MIDNIGHT. NOTED AND CARRIED OUT.
[2021-02-27] MEDS: HYDROMORPHONE HCL 2 MG TABLET PO PRN (14:04)
[2021-02-27 16:01] VITALS: BP 122/67
--- NOTE | 2021-02-27 19:26 | NUR ---
TELE/RN CLOSING NOTES PATIENT IS ON BED ALERT AND ORIENTED X3. PATIENT IS ON ROOM AIR. PATIENT IN NO APPARENT RESPIRATORY DISTRESS NOTED. NO COMPLAINED OF PAIN NOTED AT THIS TIME. SEEN AND EXAMINED BY MD WITH ORDERS MADE AND CARRIED OUT. ALL DUE MEDICATIONS WAS GIVEN. TELE MONITOR READING SINUS RHYTHM 74BPM WITH PVC. IV ACCESS AT RIGHT UPPER MIDLINE PATENT AND INTACT. SAFETY PRECAUTION WAS IN PLACED. BED IN LOWEST POSITION AND LOCKED. CALL LIGHT WITHIN REACH. PATIENT IS FOR CARDIAC CATH TOMORROW AND NPO. WILL ENDORSED TO WAGON DRILLER FOR MARCELA.
--- NOTE | 2021-02-27 19:45 | NUR ---
SCALDER NOTES RECEIVED LYING COMFORTABLY ON BED,BREATHING EASY,NO SOB,WITH RIGHT UPPER ARM MIDLINE FOR MEDS,FAMILY MEMBER AT BEDSIDE.INSTRUCTED NPO POST MIDNIGHT FOR CARDIAC CATH IN THE MORNING,CONSENT ON CHART.CALL LIGHT IN REACH,NEEDS ANTICIPATED.
[2021-02-27 20:00] VITALS: BP 122/62
[2021-02-27 21:00] VITALS: BP 122/62
[2021-02-28] VITALS (44 sets, daily range): BP systolic 100–202; BP diastolic 57–91
--- NOTE | 2021-02-28 00:15 | NUR ---
NATURAL SCIENCES MANAGER NOTES SPOKED TO DAUGHTER MYLENE,MADE AWARE OF TIME OF THE PROCEDURE,THAT PATIENT WILL GO TO ICU POST PROCEDURE FOR FURTHER MONITORING,ROOM 251.
[2021-02-28] MEDS: ZOLPIDEM TARTRATE 5 MG TABLET PO PRN ×2 (00:31→21:23)
--- NOTE | 2021-02-28 00:31 | NUR ---
MANUFACTURING ENGINEER NOTES AWAKE,AMBIEN 5MG PO GIVEN ORDERED PRN FOR SLEEP
--- NOTE | 2021-02-28 06:19 | NUR ---
ACCOUNT DEVELOPMENT REPRESENTATIVE NOTES FAIRLY RESTED AT NIGHT.KEPT NPO FOR CARDIAC CATH TODAY BY DR DUFFY AT 0915.CONSENT ON CHART.TO ICU POST CARDIAC CATH PER PROTOCOL.WILL ENDORSE TO DAY NURSE FOR MARCELA.
[2021-02-28 06:32] LABS: BASOPHILS % (AUTO) 0.7 % (0.0-2.0); EOSINOPHILS % (AUTO) 5.7 % (0.0-6.0); HEMATOCRIT 36 % (39-51); HEMOGLOBIN 12.2 g/dL (13.5-17.5); LYMPHOCYTES % (AUTO) 22.1 % (20.0-44.0); MEAN CORPUSCULAR HGB CONC 34 g/dl (31.0-36.0); MEAN CORPUSCULAR VOLUME 83 fL (80-96); MONOCYTES # (AUTO) 0.3 K/uL (0.1-1.30); MONOCYTES % (AUTO) 6.9 % (2.0-12.0); NEUTROPHILS # (AUTO) 2.9 K/uL (1.8-8.9); NEUTROPHILS % (AUTO) 64.6 % (43.0-81.0); PLATELET COUNT (AUTO) 237 K/uL (150-450); RED BLOOD CELL COUNT(AUTO) 4.28 MIL/uL (4.5-6.0); WHITE BLOOD COUNT (AUTO) 4.5 K/uL (4.3-11.0)
[2021-02-28 06:47] LABS: CALCIUM, SERUM 8.5 mg/dL (8.5-10.1); CREATININE 1.1 mg/dL (0.6-1.3); POTASSIUM 3.3 mmol/L (3.5-5.1)
[2021-02-28] MEDS ORDERED: POTASSIUM CL. PREMIX PERIPHER. 50 ML IV ONE (07:30)
--- NOTE | 2021-02-28 07:30 | NUR ---
SPA EXPERIENCE COORDINATOR OPENING NOTES RECEIVED PATIENT ASLEEP IN BED, EASY TO AROUSE. ALERT AND ORIENTED X 3. NO SIGNS OR SYMPTOMS OF DISTRESS NOTED. NO SOB. BREATHING IS EVEN AND UNLABORED. PATIENT TOLERATING WELL ON RA. ON TELE EXTERNAL MONITOR WITH SR IN 60'S. ON NPO SINCE MIDIGHT; GOING FOR CATHETERIZATION PROCEDURE TODAY IN AM. IV ACCESS SHANTANU MIDLINE PATENT, INTACT AND FLUSHING WELL. SAFETY AND SEIZURE PRECAUTIONS IN PLACE WITH BED LOCKED AT LOW POSITION AND SIDE RAILS UP X 2. WILL CONTINUE TO MONITOR PATIENT THROUGHOUT SHIFT.
--- NOTE | 2021-02-28 07:40 | NUR ---
CYANIDE POT TENDER NOTES PATIENT WITH POTASSIUM LEVEL OF 3.3 THIS MORNING. NEW ORDER FOR POTASSIUM 40MEQ IV BOLUS RECEIVED FROM DR. LEA DENISE, ORDERS READ BACK AND CARRIED OUT.
[2021-02-28] MEDS ORDERED: IV NS 0.9% 1,000 ML ONE (08:05)
[2021-02-28] MEDS ORDERED: NITROGLYCERIN IN 5 % DEXTROSE 250 ML IV ONE (08:06)
[2021-02-28] MEDS ORDERED: IODIXANOL 0 ML IV ONE (08:06)
[2021-02-28] MEDS ORDERED: LIDOCAINE HCL/MPF 1% 30 ML VIAL IJ ONE (08:06)
[2021-02-28] MEDS: POTASSIUM CL. PREMIX PERIPHER. 50 ML IV SCH ×4 (08:07→12:19)
[2021-02-28] MEDS: PANTOPRAZOLE 40 MG TABLET.DR PO SCH (08:07)
[2021-02-28] MEDS: hydrALAZINE HCL 50 MG TABLET PO SCH ×2 (08:08→16:13)
[2021-02-28] MEDS: LEVETIRACETAM (250 MG) 250 MG TABLET PO SCH ×2 (08:08→21:19)
[2021-02-28] MEDS: LACTOBACILLUS RHAMNOSUS GG 1 EACH CAP.SPRINK PO SCH (08:28)
[2021-02-28] MEDS: ATORVASTATIN 10 MG TABLET PO SCH (08:28)
[2021-02-28] MEDS: PROSOURCE / PROSTAT (PYXIS) 30 ML UDC PO SCH ×2 (08:28→16:13)
--- NOTE | 2021-02-28 08:45 | NUR ---
MARKETING PRODUCTION COORDINATOR NOTES PATIENT WAS PICKED UP VIA BED BY 2 STAFF MEMBERS AND ESCORTED PATIENT FOR FELT CUTTER.
[2021-02-28] MEDS ORDERED: HEPARIN SODIUM, PORCINE 1,000 UNIT/ML VIAL ONE (09:11)
[2021-02-28] MEDS ORDERED: FENTANYL PF 100MCG/2ML AMPUL ONE (09:11)
[2021-02-28] MEDS ORDERED: MIDAZOLAM HCL 2 MG/2ML VIAL ONE (09:11)
[2021-02-28] MEDS ORDERED: IODIXANOL 320MG/ML 50 ML IV ONE (09:47)
[2021-02-28] MEDS ORDERED: ASPIRIN 81 MG TAB.CHEW ONE (10:01)
[2021-02-28] MEDS ORDERED: TICAGRELOR 90 MG TABLET PO ONE (10:04)
[2021-02-28] MEDS ORDERED: ADENOSINE 6 MG/2 ML VIAL ONE ×2 (10:07→10:08)
[2021-02-28] MEDS ORDERED: IV NS 0.9% 500 ML IV ONE (10:08)
[2021-02-28] MEDS ORDERED: methylPREDNISolone SOD SUCC 125 MG/2ML VIAL ONE (10:15)
[2021-02-28] MEDS ORDERED: HYDROMORPHONE 1 MG/1 ML DISP.SYRIN ONE (10:18)
--- NOTE | 2021-02-28 10:40 | NUR ---
PT ARRIVED FROM [place] AT 1030. PT AWAKE, FOLLOWS COMMANDS, APPEARS TO BE SLOW TO RESPOND AT TIMES. TR BAND IN PLACE, PLACED AT 1020, MAY START REMOVING AIR AT 1220. PER MD ORDERS PT CHECKED ON Q15M X3 HOURS THEN Q1H X12H. PT'S DAUGHTER AT BEDSIDE. DR DOSS WAS AT BEDSIDE SPEAKING TO PATIENT AND PT'S DAUGHTER. Addendum: 02/28/21 at 1216 by FARSHAD KAMARA RN CORRECTION, PT ARRIVED AT 1041 FROM [place]
--- NOTE | 2021-02-28 11:20 | NUR ---
NEGATIVE ASSEMBLERFIRE INVESTIGATION LIEUTENANT NOTES PATIENT IS IN ROOM 251 IN ICU. ALL BELONGINGS RETURNED AND DROPPED OFF TO ROOM 251 TO PATIENT WITH DAUGHTER, MYLENE. REPORT GIVEN TO FARSHAD ICU NURSE.
[2021-02-28] MEDS: HYDROMORPHONE HCL 2 MG TABLET PO PRN ×2 (11:48→21:20)
[2021-02-28] MEDS: METOPROLOL TARTRATE 25 MG TABLET PO SCH ×2 (11:49→21:19)
--- NOTE | 2021-02-28 12:15 | NUR ---
RN NOTES RECEIVED PT ON BED, ALERT/ CONFUSED, SCREAMING AT TIMES. BP SBP IN 180'S ,DAUGHTER AT THE BEDSIDE, TR BAND ON ON RIGHT WRIST , ALIGNED WITH GREEN MARKER, BALLOON 16 INFLATED, SITE CLEAN, DRY AND NO SIGN OF BLEEDING AND HEMATOMA NOTED ,PT IS ABLE TO MOVE HIS FINGERS , NO NUMBNESS AND TINGLING NOTED, STRONG POSITIVE RIGHT RADIAL PULSES NOTED ON PALPATION . CONTINUE TO MONITOR.
[2021-02-28] MEDS: LORAZEPAM INJ 2 MG/ML VIAL IV PRN ×2 (13:16→22:26)
[2021-02-28] MEDS ORDERED: LORAZEPAM INJ 2 MG/ML VIAL IV ONE (14:00)
--- NOTE | 2021-02-28 15:00 | NUR ---
RN NOTES UNABLE TO REMOVE TR BAND , SMALL AMOUNT OF OOZING NOTED AT THE SITE , CONTINUE TO MONITOR .
[2021-02-28] MEDS: TICAGRELOR 90 MG TABLET PO SCH (16:13)
--- NOTE | 2021-02-28 18:00 | NUR ---
RN NOTES 8 ML OUT OF 16 ML AIR OF THE TR BAND STILL IN , SMALLL AMOUNT OF BLOODY OOZING NOTED AT SITE , UNABLE TO ACHIEVE HEMOSTASIS AT THIS TIME, DR DOSS NOTIFIED. STRONG RIGHT RADIAL PULSES PRESENT , RIGHT HAND WARM TO TOUCH, PT IS ABLE TO MOVE FINGERS, PERRY NUMBNESS AND TINGLING , VSS STABLE, WILL ENDORSE TO STUDENT TEACHING COORDINATOR NURSE FOR CONTINUITY OF CARE.
--- NOTE | 2021-02-28 18:30 | NUR ---
RN NOTES HEMOSTASIS ACHIEVED, DRESSING APPLIED TO THE R WIRST . NO COMPLICATION NOTED .
[2021-02-28] MEDS ORDERED: IV NS 0.9% 1,000 ML IV ONE (19:00)
[2021-03-01] VITALS (50 sets, daily range): BP systolic 82–178; BP diastolic 43–94
[2021-03-01] MEDS ORDERED: HYDROMORPHONE HCL 2 MG TABLET ONE (03:41)
[2021-03-01] MEDS: HYDROMORPHONE HCL 2 MG TABLET PO PRN ×2 (03:53→13:04)
[2021-03-01 04:34] LABS: BASOPHILS % (AUTO) 0.5 % (0.0-2.0); EOSINOPHILS % (AUTO) 0.6 % (0.0-6.0); HEMATOCRIT 35 % (39-51); HEMOGLOBIN 11.6 g/dL (13.5-17.5); LYMPHOCYTES # (AUTO) 0.8 K/uL (0.8-4.8); LYMPHOCYTES % (AUTO) 8.9 % (20.0-44.0); MEAN CORPUSCULAR HGB CONC 33 g/dl (31.0-36.0); MEAN CORPUSCULAR VOLUME 85 fL (80-96); MONOCYTES # (AUTO) 0.7 K/uL (0.1-1.30); MONOCYTES % (AUTO) 6.8 % (2.0-12.0); NEUTROPHILS # (AUTO) 7.9 K/uL (1.8-8.9); NEUTROPHILS % (AUTO) 83.2 % (43.0-81.0); PLATELET COUNT (AUTO) 216 K/uL (150-450); RED BLOOD CELL COUNT(AUTO) 4.07 MIL/uL (4.5-6.0); WHITE BLOOD COUNT (AUTO) 9.5 K/uL (4.3-11.0)
[2021-03-01 04:42] LABS: CALCIUM, SERUM 9.1 mg/dL (8.5-10.1); POTASSIUM 5.1 mmol/L (3.5-5.1)
[2021-03-01 05:20] LABS: MAGNESIUM 2.3 mg/dL (1.8-2.4)
[2021-03-01] MEDS: OLANZAPINE ZYDIS 5 MG TAB.RAPDIS SL PRN (05:25)
[2021-03-01] MEDS: LORAZEPAM INJ 2 MG/ML VIAL IV PRN (06:17)
[2021-03-01] MEDS: METOPROLOL TARTRATE INJ 5 MG/5 ML AMPUL IVP PRN (06:36)
[2021-03-01] MEDS: PANTOPRAZOLE 40 MG TABLET.DR PO SCH (06:46)
--- NOTE | 2021-03-01 07:03 | NUR ---
RN notes Received patient in bed, awake, alert and oriented. Afebrile, vital signs wnl. No distress noted, breathing even and unlabored. On 2lpm via nasal cannula tolerating well. Complaining of generalized pain at 21:00, dilaudid 8mg tablet, given with relief. Requested sleeping pill, Ambien 5mg with help. Patient requested for ativan, patient said he was feeling very anxious. Administered 1mg ativan iv push, no adverse effect noted and with help. Patient slept from 22:00 to 04:00. When patient woke up, patient was complaining of severe headache, described as pounding and severe 10 out 10. Called Md to ask if he will give another dose of ativan as requested by the patient. Doctor refused. Advised to wait for the next available dose. Patient was very insistent, gave zyprexa PRN with help and tylenol 650mg with some relief. Gave dilaudid and ativan again after 8 hrs with minimal help. Patient kept on complaining. Spoke with daughter x 2. Daughter also insistent on giving medication to the father. Charge nurse aware, spoke with the patient several times. At around 0600 BP was at 162/59, with help. BP went down. Kept clean and dry. Will endorse to next shift for continuity of care.
[2021-03-01] MEDS: hydrALAZINE HCL 50 MG TABLET PO SCH (08:35)
[2021-03-01] MEDS: ATORVASTATIN 10 MG TABLET PO SCH (08:36)
[2021-03-01] MEDS: LEVETIRACETAM (250 MG) 250 MG TABLET PO SCH (08:36)
[2021-03-01] MEDS: LACTOBACILLUS RHAMNOSUS GG 1 EACH CAP.SPRINK PO SCH (08:36)
[2021-03-01] MEDS: METOPROLOL TARTRATE 25 MG TABLET PO SCH (08:37)
[2021-03-01] MEDS: PROSOURCE / PROSTAT (PYXIS) 30 ML UDC PO SCH (08:40)
[2021-03-01] MEDS ORDERED: ASPIRIN EC 81 MG TABLET.DR PO SCH (09:00)
[2021-03-01] MEDS ORDERED: ASPI-1169 PO (09:39)
[2021-03-01] MEDS ORDERED: TICA90TA PO (09:39)
[2021-03-01] MEDS ORDERED: LEVE500T9 PO (09:43)
[2021-03-01] MEDS: TICAGRELOR 90 MG TABLET PO SCH (10:34)
--- NOTE | 2021-03-01 11:00 | NUR ---
ASSUMED CARE OF PATIENT AT THIS TIME. PT GOING TO BE DISCHARGED TODAY. PER PT'S DAUGHTER EVELIA, SHE CAN'T COMMUNICATIONS MAINTAINER [place]IL[place] UNTIL 12PM AND WILL BE HERE AFTER TO TAKE PT HOME. PT CHECKED ON HOURLY AND PRN BY NURSING STAFF.
--- NOTE | 2021-03-01 15:07 | NUR ---
DISCHARGE INSTRUCTIONS GIVEN TO PATIENT AND PATIENTS DAUGHTER EVELIA. BELONGINGS LIST DISCUSSED AND SIGNED BY PATIENT. PT DISCHARGED WITH ALL BELONGINGS AND DISCHARGE INSTRUCTIONS VIA WHEELCHAIR ESCORTED OUT BY FARSHAD HAQ ALONG WITH PATIENTS DAUGHTER. PATIENT AND DAUGHTER PICKED UP BY CIVIL PREPAREDNESS OFFICER. RIGHT UPPER MIDLINE REMOVED PRIOR TO DISCHARGE WITHOUT DIFFICULTY.
== END 2021-03-01 14:54 | disposition home health service (06) | DRG 246 ==
LOC: ER 22:27 → TELE1 02-22 03:52 → TELE 02-26 11:42 → ICU 02-28 11:02
PROVIDERS: ADMIT Nurse Practitioner Acute Care; ATTEND Nurse Practitioner Acute Care
PROC: 05HB33Z Insertion of Infusion Device into Right Basilic Vein, Percutaneous Approach (ICD-10-PCS; 2021-02-23)
PROC: 027034Z Dilation of Coronary Artery, One Artery with Drug-eluting Intraluminal Device, Percutaneous Approach (ICD-10-PCS; principal; 2021-02-28)
PROC: 4A023N7 Measurement of Cardiac Sampling and Pressure, Left Heart, Percutaneous Approach (ICD-10-PCS; 2021-02-28)
PROC: B211YZZ Fluoroscopy of Multiple Coronary Arteries using Other Contrast (ICD-10-PCS; 2021-02-28)
PROC: B215YZZ Fluoroscopy of Left Heart using Other Contrast (ICD-10-PCS; 2021-02-28)
PROC: B34HZZZ Ultrasonography of Right Upper Extremity Arteries (ICD-10-PCS; 2021-02-28)
DX: I21.4 Non-ST elevation (NSTEMI) myocardial infarction (principal); N17.0 Acute kidney failure with tubular necrosis; G93.41 Metabolic encephalopathy; I50.33 Acute on chronic diastolic (congestive) heart failure; E44.0 Moderate protein-calorie malnutrition; F11.20 Opioid dependence, uncomplicated; D83.9 Common variable immunodeficiency, unspecified; F13.20 Sedative, hypnotic or anxiolytic dependence, uncomplicated; Z68.1 Body mass index [BMI] 19.9 or less, adult; I25.110 Atherosclerotic heart disease of native coronary artery with unstable angina pectoris; R56.9 Unspecified convulsions; Z20.822 Contact with and (suspected) exposure to COVID-19; I11.0 Hypertensive heart disease with heart failure; Z88.0 Allergy status to penicillin; Z88.2 Allergy status to sulfonamides; Z88.8 Allergy status to other drugs, medicaments and biological substances; Z88.1 Allergy status to other antibiotic agents; Z91.011 Allergy to milk products; Z79.899 Other long term (current) drug therapy; F29 Unspecified psychosis not due to a substance or known physiological condition; F32.9 Major depressive disorder, single episode, unspecified; F41.9 Anxiety disorder, unspecified; G89.4 Chronic pain syndrome; M48.061 Spinal stenosis, lumbar region without neurogenic claudication; Z88.6 Allergy status to analgesic agent; Z82.49 Family history of ischemic heart disease and other diseases of the circulatory system; M19.90 Unspecified osteoarthritis, unspecified site; R62.7 Adult failure to thrive; M41.9 Scoliosis, unspecified; Z79.82 Long term (current) use of aspirin; W19.XXXA Unspecified fall, initial encounter; Y92.9 Unspecified place or not applicable; E88.09 Other disorders of plasma-protein metabolism, not elsewhere classified
CPT/HCPCS: 36410; 36415; 70450-TC; 71045-TC; 72131-TC; 74018; 75574; 80048-TC; 80053-TC; 80061-TC; 80076-TC; 82140-TC; 82962-TC; 83735-TC; 83880; 84100-TC; 84155; 84165; 84443-TC; 84484-TC; 85025-TC; 85610-TC; 85730-TC; 87081-TC; 92980; 93307-TC; 95819-TC; 97110-TC; 97112-TC; 97530-TC; A4349; C1769; C9803; G0378; G0480; G0500; J0153; J0780; J1170; J1644; J1940; J1953; J2060; J2250; J2405; J2930; J3010; J3480; J3490; J7030; J7040; J7050; Q9967; U0003

== ENCOUNTER 2021-12-19 17:22 | Emergency (ER) | payer BC, MEDICARE ==
[~2021-12-19] VITALS: Ht 167.6 cm; Wt 60.3 kg
[~2021-12-19 17:22] MED LIST changes: -CARI350T PO; -DIPH50VI14 IV; -HYDR2DIS IV; -HYDR8TAB2 PO; +IMMU10VI8 IV; -LACT1CAP72 PO; +LEVE500T9 PO; -LORA2TAB95 PO; -LORA2VIA11 IV; -MINO2.5T2 PO; -ONDA4VIA52 IV; +PROC10TA29 PO; -TADA20TA PO; +TICA90TA PO; -ZOLP10TA2 PO
--- NOTE | 2021-12-19 17:36 | NUR ---
ONDINA NIETO FROM HOME C/O "ABDOMINAL PAIN, NAUSEA, VOMITING AND ON&OFF CONSTIPATION" TO ER BED 12, HOOKED TO MONITOR, CHANGED TO HOSP GOWN. WARM BLANKET PROVIDED. PATIENT AAO x 4. BREATHING EVEN AND UNLABORED. AWAITING MD RUSSELL.
--- NOTE | 2021-12-19 18:19 | NUR ---
DR ERICKSON AT BEDSIDE
[2021-12-19 18:22] VITALS: BP 142/70
[2021-12-19] MEDS ORDERED: DIATR MEGLU/DIATRIZOATE SODIUM 30 ML BOTTLE (GASTROGRAPHIN) ONE (18:27)
[2021-12-19] MEDS ORDERED: IV NS 0.9% 500 ML BAG IV ONE (18:30)
[2021-12-19] MEDS ORDERED: ONDANSETRON HCL/PF 4 MG/2 ML VIAL IVP ONE (18:30)
--- NOTE | 2021-12-19 18:40 | NUR ---
HOOP PUNCH AND COILER OPERATOR HELPER AT BEDSIDE
[2021-12-19] MEDS ORDERED: ONDANSETRON 4 MG TAB.RAPDIS ONE (18:57)
--- NOTE | 2021-12-19 18:58 | NUR ---
PATIENT REFUSED CT SCAN ABDOMEN WITH PO CONTRAST. REFUSED IV NS AND ZOFRAN 4MG IV. MADE MD AWARE
[2021-12-19] MEDS ORDERED: ONDANSETRON 4 MG TAB.RAPDIS SL ONE (19:00)
[2021-12-19 19:15] LABS: BILIRUBIN,DIRECT 0.1 mg/dL (0.0-0.2); BILIRUBIN,TOTAL 0.3 mg/dL (0.2-1.0); CALCIUM, SERUM 8.9 mg/dL (8.5-10.1); CREATININE 1.1 mg/dL (0.6-1.3); POTASSIUM 4.2 mmol/L (3.5-5.1); TOTAL PROTEIN, SERUM 8.4 g/dL (6.4-8.2)
--- NOTE | 2021-12-19 19:17 | NUR ---
Patient does not wish to proceed with medical care recommended by Dr. Koch. Patient given information related to possible complications, up to and including , which could occur as a result of leaving the hospital at this time. Patient verbalizes understanding of risks involved due to leaving against medical advice. Patient has signed AMA form. Patient assisted by daughter going outside facility.
[2021-12-19 20:00] LABS: BASOPHILS % (AUTO) 0.3 % (0.0-2.0); EOSINOPHILS % (AUTO) 0.1 % (0.0-6.0); HEMATOCRIT 34 % (39-51); HEMOGLOBIN 11.5 g/dL (13.5-17.5); LYMPHOCYTES # (AUTO) 0.4 K/uL (0.8-4.8); LYMPHOCYTES % (AUTO) 7.6 % (20.0-44.0); MEAN CORPUSCULAR HGB CONC 34 g/dl (31.0-36.0); MEAN CORPUSCULAR VOLUME 82 fL (80-96); MONOCYTES # (AUTO) 0.2 K/uL (0.1-1.30); MONOCYTES % (AUTO) 4.8 % (2.0-12.0); NEUTROPHILS # (AUTO) 4.3 K/uL (1.8-8.9); NEUTROPHILS % (AUTO) 87.2 % (43.0-81.0); PLATELET COUNT (AUTO) 276 K/uL (150-450); RED BLOOD CELL COUNT(AUTO) 4.16 MIL/uL (4.5-6.0); WHITE BLOOD COUNT (AUTO) 4.9 K/uL (4.3-11.0)
[2021-12-19 21:09] LABS: BILIRUBIN,URINE NEGATIVE (NEGATIVE); COLOR,URINE YELLOW (YELLOW); LEUKOCYTE ESTERASE ,URINE NEGATIVE (NEGATIVE); NITRITE, URINE NEGATIVE (NEGATIVE); PH,URINE 7.5 (5.0-8.0); PROTEIN,URINE NEGATIVE (NEGATIVE); UGLUCOSE NEGATIVE (NEGATIVE); UROBILINOGEN,URINE 0.2 EU/dL (0.2)
== END 2021-12-19 19:20 | disposition left against medical advice (07) ==
LOC: ER 17:31
DX: R10.10 Upper abdominal pain, unspecified (principal); I10 Essential (primary) hypertension; Z88.8 Allergy status to other drugs, medicaments and biological substances; Z79.899 Other long term (current) drug therapy
CPT/HCPCS: 36415; 71045; 80048; 80076; 81003; 83690; 85025; 99284; Q0162; Q9963

== ENCOUNTER 2022-01-15 19:39 | Emergency (ER) | payer BC, MEDICARE ==
[~2022-01-15] VITALS: Ht 167.6 cm; Wt 68.0 kg
--- NOTE | 2022-01-15 20:22 | NUR ---
PT BIBRA C/O DIFFUSE ABD PAIN AND CONSTIPATION X "FEW DAYS". PT DOES NOT RECALL HIS LAST BM. PT AAOX4 BREATHING EVENLY AND UNLABORED. PT ATTACHED TO MONITOR AND POX. PT CHANGED INTO GOWN AND GIVEN BLANKET AND CALL LIGHT WITHIN REACH
[2022-01-15] MEDS ORDERED: ACETAMINOPHEN ES 500 MG TABLET ONE (20:46)
[2022-01-15] MEDS ORDERED: ACETAMINOPHEN ES 500 MG TABLET PO ONE (21:00)
[2022-01-15 21:04] LABS: BASOPHILS % (AUTO) 0.6 % (0.0-2.0); EOSINOPHILS % (AUTO) 0.6 % (0.0-6.0); HEMATOCRIT 33 % (39-51); HEMOGLOBIN 10.9 g/dL (13.5-17.5); LYMPHOCYTES # (AUTO) 0.6 K/uL (0.8-4.8); LYMPHOCYTES % (AUTO) 12.1 % (20.0-44.0); MEAN CORPUSCULAR HGB CONC 34 g/dl (31.0-36.0); MEAN CORPUSCULAR VOLUME 84 fL (80-96); MONOCYTES # (AUTO) 0.3 K/uL (0.1-1.30); MONOCYTES % (AUTO) 7.6 % (2.0-12.0); NEUTROPHILS # (AUTO) 3.6 K/uL (1.8-8.9); NEUTROPHILS % (AUTO) 79.1 % (43.0-81.0); PLATELET COUNT (AUTO) 257 K/uL (150-450); RED BLOOD CELL COUNT(AUTO) 3.91 MIL/uL (4.5-6.0); WHITE BLOOD COUNT (AUTO) 4.6 K/uL (4.3-11.0)
--- NOTE | 2022-01-15 21:11 | NUR ---
RETURNED FROM RADIOLOGY
--- NOTE | 2022-01-15 21:27 | NUR ---
Patient does not wish to proceed with medical care recommended by Dr. Landaverde. Patient given information related to possible complications, up to and including , which could occur as a result of leaving the hospital at this time. Patient verbalizes understanding of risks involved due to leaving against medical advice. Patient has signed AMA form.
[2022-01-15 21:31] VITALS: BP 136/70
[2022-01-15 21:42] LABS: ALBUMIN 3.9 g/dL (3.4-5.0); BILIRUBIN,DIRECT 0.1 mg/dL (0.0-0.2); BILIRUBIN,TOTAL 0.5 mg/dL (0.2-1.0); CALCIUM, SERUM 8.8 mg/dL (8.5-10.1); CREATININE 1.2 mg/dL (0.6-1.3); TOTAL PROTEIN, SERUM 7.8 g/dL (6.4-8.2)
[2022-01-15 23:11] LABS: POTASSIUM 3.7 mmol/L (3.5-5.1)
[2022-02-14] MEDS ORDERED: ENOX40DI SQ (11:38)
[2022-02-14] MEDS ORDERED: AMIN946L5 PO (11:38)
[2022-02-14] MEDS ORDERED: DOXY-326 PO (11:38)
== END 2022-01-15 21:25 | disposition left against medical advice (07) ==
LOC: ER 19:44
DX: R10.84 Generalized abdominal pain (principal); K59.00 Constipation, unspecified; I10 Essential (primary) hypertension; Z88.0 Allergy status to penicillin; Z88.2 Allergy status to sulfonamides; Z91.011 Allergy to milk products; Z88.8 Allergy status to other drugs, medicaments and biological substances; Z79.899 Other long term (current) drug therapy
CPT/HCPCS: 36415; 80048-TC; 80076-TC; 83690-TC; 85025-TC

== ENCOUNTER 2022-01-27 17:13 | Emergency (ER) | payer BC, MEDICARE ==
[~2022-01-27] VITALS: Ht 167.6 cm; Wt 68.0 kg
--- NOTE | 2022-01-27 17:40 | NUR ---
BIBRA[facility] HOME, DAUGHTER CALLED 911 FOR INCREASED CONFUSION X 1 WEEK AND ABDOMINAL PAIN/CONSTIPATION. BG 130 DIRECTOR DENTAL SERVICES. PLACED ON BED, RESPONDING TO VERBAL STIMULI, BREATHING EVEN AND UNLABORED.
--- NOTE | 2022-01-27 18:00 | NUR ---
PATIENT DAUGHTER REFUSES BLOOD WORKS, THEY ARE HERE ONLY FOR CT HEAD AND LUMBAR SPINE. DR ROCHA AWARE.
--- NOTE | 2022-01-27 18:01 | NUR ---
PATIENT TAKEN TO CT VIA GURNEY.
--- NOTE | 2022-01-27 19:53 | NUR ---
PT PROVIDED WITH WARM BLANKET FOR COMFORT.
--- NOTE | 2022-01-27 20:00 | NUR ---
Patient does not wish to proceed with medical care recommended by Dr. Feliciano. Patient given information related to possible complications, up to and including , which could occur as a result of leaving the hospital at this time. Patient verbalizes understanding of risks involved due to leaving against medical advice. Patient has signed AMA form. Pt escorted by daughter, with steady gait
[2022-01-27 20:07] VITALS: BP 140/88
== END 2022-01-27 20:07 | disposition left against medical advice (07) ==
LOC: ER 17:15
DX: R53.1 Weakness (principal); K59.09 Other constipation; I10 Essential (primary) hypertension; Z88.0 Allergy status to penicillin; Z88.2 Allergy status to sulfonamides; Z88.6 Allergy status to analgesic agent; Z88.1 Allergy status to other antibiotic agents; Z88.8 Allergy status to other drugs, medicaments and biological substances; Z91.011 Allergy to milk products; Z79.899 Other long term (current) drug therapy
CPT/HCPCS: 70450-TC; 71045-TC; 72131-TC

== ENCOUNTER 2022-02-12 14:05 | Inpatient (IN) | payer MEDICARE, BC ==
[~2022-02-12] VITALS: Ht 167.6 cm; Wt 54.2 kg
--- NOTE | 2022-02-12 14:10 | NUR ---
RECEIVED PT 66 YRS MALE CAME BY ORDI ACCOMPANY BY DELGADO C/O genralized weekness not fallow command respirtion spont and easy
--- NOTE | 2022-02-12 14:30 | NUR ---
SEEN BY DR. ERICKSON
[2022-02-12] MEDS ORDERED: ACETAMINOPHEN ES 500 MG TABLET ONE (14:47)
[2022-02-12] MEDS ORDERED: IV NS 0.9% 500 ML BAG IV ONE (15:00)
--- NOTE | 2022-02-12 15:09 | NUR ---
AG DONE 111 MG/LD DR.NEWMAN CHAVIRA
--- NOTE | 2022-02-12 15:15 | NUR ---
INSERTED ANGO CATHETER G 20 ON RT UPPER ARM BLOOD DROW AND SENT TO LAB BLOOD CULURE X 2 SENT AND LACTIC SENT
[2022-02-12] MEDS: ACETAMINOPHEN ES 500 MG TABLET PO ONE ×2 (15:32→15:34)
[2022-02-12 15:45] LABS: BASOPHILS # (AUTO) 0.1 K/uL (0.0-0.2); BASOPHILS % (AUTO) 0.6 % (0.0-2.0); EOSINOPHILS % (AUTO) 0.1 % (0.0-6.0); HEMATOCRIT 36 % (39-51); HEMOGLOBIN 11.7 g/dL (13.5-17.5); LYMPHOCYTES # (AUTO) 0.3 K/uL (0.8-4.8); LYMPHOCYTES % (AUTO) 2.5 % (20.0-44.0); MEAN CORPUSCULAR HGB CONC 33 g/dl (31.0-36.0); MEAN CORPUSCULAR VOLUME 85 fL (80-96); MONOCYTES # (AUTO) 0.5 K/uL (0.1-1.30); MONOCYTES % (AUTO) 4.1 % (2.0-12.0); NEUTROPHILS # (AUTO) 11.1 K/uL (1.8-8.9); NEUTROPHILS % (AUTO) 92.7 % (43.0-81.0); PLATELET COUNT (AUTO) 246 K/uL (150-450); RED BLOOD CELL COUNT(AUTO) 4.18 MIL/uL (4.5-6.0)
--- NOTE | 2022-02-12 15:45 | NUR ---
COVID SWAB DONE AND SENT TO LAB
--- NOTE | 2022-02-12 15:48 | NUR ---
TO CT SCAN OF HEAD
[2022-02-12 15:53] LABS: CARBON DIOXIDE 30 mmol/L (21-32); CHLORIDE 102 mmol/L (98-107); CREATININE 1.2 mg/dL (0.6-1.3); GLUCOSE 119 mg/dL (74-106); POTASSIUM 3.6 mmol/L (3.5-5.1); SODIUM SERUM 138 mmol/L (136-145); UREA NITROGEN, BLOOD 24 mg/dL (7-18)
[2022-02-12] MEDS ORDERED: ACETAMINOPHEN 650 MG/SUPP.RECT RC ONE ×2 (16:00→17:04)
[2022-02-12 16:08] LABS: ALANINE AMINOTRANSFERASE 18 U/L (12-78); ALBUMIN 3.9 g/dL (3.4-5.0); ALKALINE PHOSPHATASE 81 U/L (46-116); ASPARTATE AMINOTRANSFERASE 21 U/L (15-37); BILIRUBIN,DIRECT 0.1 mg/dL (0.0-0.2); BILIRUBIN,TOTAL 0.7 mg/dL (0.2-1.0); TOTAL PROTEIN, SERUM 7.3 g/dL (6.4-8.2)
[2022-02-12 16:14] LABS: THYROID STIMULATING HORMONE 0.923 uIU/mL (0.358-3.74)
[2022-02-12 16:18] LABS: SERUM AMMONIA < 10 umol/L (11-32)
--- NOTE | 2022-02-12 16:30 | NUR ---
wating for telmtery bed pt vs stable
--- NOTE | 2022-02-12 17:13 | NUR ---
serge at bed side ( [facility] )
--- NOTE | 2022-02-12 18:36 | NUR ---
GOT BED 314-1
--- NOTE | 2022-02-12 19:15 | NUR ---
TO ROOM 213- 1 HAND OFF TO JOSIE Benoit RN
--- NOTE | 2022-02-12 19:20 | NUR ---
PT GOING TO ROOM 314-1
--- NOTE | 2022-02-12 19:53 | NUR ---
PT TRANSFERRING TO [facility] VIA HOSPITAL PROTOCOL. VSS. ALL BELONGINGS WITH PT.
[2022-02-12 20:00] VITALS: BP 142/75
[2022-02-12] MEDS ORDERED: Z GUARD REMEDY 4 OZ OINT TP PRN (20:00)
[2022-02-12] MEDS ORDERED: ACETAMINOPHEN 325 MG TABLET PO PRN (20:00)
[2022-02-12] MEDS ORDERED: ONDANSETRON HCL/PF 4 MG/2 ML VIAL IVP PRN (20:00)
--- NOTE | 2022-02-12 20:00 | NUR ---
MS BAG LOADER NOTE PT TRANSPORTED VIA GURNEY TO UNIT AT THIS TIME. PT ADMITTED TO MS FROM ER UNDER DR JANG FOR ADMITTING DX OF FAILURE TO THRIVE. A/O X0 AND RESPONSIVE TO VERBAL STIMULI WITH MOANS. PT IS ON O2 @ 2LPM VIA NC, SATURATING WELL. NO SOB OR S/S OF RESPIRATORY DISTRESS. BREATHING EVEN AND UNLABORED. NOTED WITH THICK ORAL SECRETIONS. NOTED WITH RASH ON CHEST AND BACK AND SACRAL REDNESS. IV ACCESS SHANTANU 20 GAUGE RUNNING NS @ 75 ML/HR. PT ORIENTED TO UNIT, STAFF, AND ROOM. PT BELONGINGS ACCOUNTED FOR AND BELONGINGS LIST SIGNED. SAFETY PRECAUTIONS IN PLACE. BED IN LOWEST LOCKED POSITION, HOB ELEVATED, SIDE RAILS UP X3, AND CALL LIGHT AND TABLE WITHIN REACH. ALL NEEDS MET AT THIS TIME.
[2022-02-12 20:30] VITALS: BP 142/72
[2022-02-12] MEDS: ENOXAPARIN SODIUM 40 MG/0.4 ML DISP.SYRIN SQ SCH (20:35)
[2022-02-12] MEDS ORDERED: LEVETIRACETAM (250 MG) 250 MG TABLET PO SCH (21:00)
[2022-02-12] MEDS ORDERED: DOXYCYCLINE HYCLATE (100 MG) 100 MG TABLET PO SCH (21:00)
[2022-02-12] MEDS ORDERED: LEVETIRACETAM (500MG) 250 MG in IV NS 0.9% 100 ML IV SCH (21:00)
[2022-02-12] MEDS: LEVETIRACETAM (500MG) 500 MG in IV NS 0.9% 100 ML IV SCH (21:07)
[2022-02-12] MEDS: IV NS 0.9% 1,000 ML IV PRN (21:18)
[2022-02-12] MEDS: DOXYCYCLINE 100 MG in IV D5W 100 ML IV SCH (21:45)
[2022-02-12] MEDS ORDERED: ZOLPIDEM TARTRATE 5 MG TABLET PO PRN (22:00)
--- NOTE | 2022-02-13 05:52 | NUR ---
RN NOTE PER DAUGHTER MYLENE, PT IS ON A STRICT LAXATIVE REGIMEN AND HAS GI DOCTOR AT [facility] BY THE NAME OF DR MARCK PRUITT .
[2022-02-13 06:14] LABS: ALBUMIN 3.2 g/dL (3.4-5.0); BILIRUBIN,TOTAL 0.7 mg/dL (0.2-1.0); CALCIUM, SERUM 8.6 mg/dL (8.5-10.1); CREATININE 0.9 mg/dL (0.6-1.3); PHOSPHORUS 3.8 mg/dL (2.5-4.9); POTASSIUM 3.5 mmol/L (3.5-5.1); TOTAL PROTEIN, SERUM 6.6 g/dL (6.4-8.2)
[2022-02-13 06:25] LABS: THYROID STIMULATING HORMONE 1.263 uIU/mL (0.358-3.74)
--- NOTE | 2022-02-13 06:31 | NUR ---
MS RN CLOSING NOTE PT RESTING IN BED. A/O X0 AND RESPONSIVE TO VERBAL STIMULI WITH MOANS. PT IS ON O2 @ 2LPM VIA NC, SATURATING WELL. NO SOB OR S/S OF RESPIRATORY DISTRESS. BREATHING EVEN AND UNLABORED. NOTED WITH THICK ORAL SECRETIONS, SUCTIONED FREQUENTLY DURING SHIFT. IV ACCESS SHANTANU 20 GAUGE RUNNING NS @ 75 ML/HR. ALL DUE MEDS GIVEN ORDERED. TURNED AND REPOSITIONED Q2H. SAFETY PRECAUTIONS IN PLACE AT ALL TIMES. BED IN LOWEST LOCKED POSITION, HOB ELEVATED, SIDE RAILS UP X3, AND CALL LIGHT AND TABLE WITHIN REACH. ALL NEEDS MET AT THIS TIME AND WILL ENDORSE TO ONCOMING NURSE FOR MARCELA.
[2022-02-13 06:44] LABS: BASOPHILS % (AUTO) 0.2 % (0.0-2.0); EOSINOPHILS % (AUTO) 0.5 % (0.0-6.0); HEMATOCRIT 31 % (39-51); HEMOGLOBIN 10.7 g/dL (13.5-17.5); LYMPHOCYTES # (AUTO) 0.6 K/uL (0.8-4.8); LYMPHOCYTES % (AUTO) 7.1 % (20.0-44.0); MEAN CORPUSCULAR HGB CONC 35 g/dl (31.0-36.0); MEAN CORPUSCULAR VOLUME 84 fL (80-96); MONOCYTES # (AUTO) 0.6 K/uL (0.1-1.30); MONOCYTES % (AUTO) 6.2 % (2.0-12.0); NEUTROPHILS # (AUTO) 7.7 K/uL (1.8-8.9); PLATELET COUNT (AUTO) 204 K/uL (150-450); RED BLOOD CELL COUNT(AUTO) 3.68 MIL/uL (4.5-6.0); WHITE BLOOD COUNT (AUTO) 8.9 K/uL (4.3-11.0)
[2022-02-13 08:00] VITALS: BP 116/61
--- NOTE | 2022-02-13 08:06 | NUR ---
MS RN OPENING NOTE Patient in bed, asleep. A/O x 0, lethargic and responds by moaning per welder 2nd shift nurse. On O2 at 2 LPM, breathing evenly and unlabored. No SOB or s/s of distress noted. IV access on SHANTANU #20 infusing NS at 75 ml/hr. Safety precautions in place: bed in low, locked position; siderails up x 2; call light within reach. will continue to monitor.
[2022-02-13] MEDS: LEVETIRACETAM (500MG) 500 MG in IV NS 0.9% 100 ML IV SCH ×2 (08:21→20:11)
[2022-02-13] MEDS: MINOXIDIL (2.5MG) 2.5 MG TABLET PO SCH ×2 (08:30→16:33)
[2022-02-13] MEDS: PANTOPRAZOLE 40 MG TABLET.DR PO SCH (08:30)
[2022-02-13] MEDS: hydrALAZINE HCL 50 MG TABLET PO SCH ×2 (08:30→16:33)
[2022-02-13] MEDS ORDERED: TICAGRELOR 90 MG TABLET PO SCH (09:00)
[2022-02-13] MEDS: DOXYCYCLINE 100 MG in IV D5W 100 ML IV SCH ×2 (09:18→20:10)
[2022-02-13] MEDS: ASPIRIN 81 MG TAB.CHEW PO SCH (09:18)
--- NOTE | 2022-02-13 10:00 | NUR ---
RN NOTE Clarified with Dr. Gallo about Aspirin medication, Aspirin listed as allergy. Dr. Gallo confirmed to continue to give medication.
--- NOTE | 2022-02-13 12:00 | NUR ---
RN NOTE Patient is more alert now. Patient able to state his name but didn't know where he was and what day it was. Bedside swallow eval done earlier this AM at 0900, passed. Gave Patient's AM meds with apple sauce. Diet was changed to pureed by [facility]. Patient ate 30% of his lunch, and is more verbally responsive now.
[2022-02-13] MEDS: IV NS 0.9% 1,000 ML IV PRN (16:33)
[2022-02-13] MEDS: PROSOURCE / PROSTAT (PYXIS) 30 ML UDC PO SCH (16:33)
[2022-02-13 17:21] LABS: BILIRUBIN,URINE NEGATIVE (NEGATIVE); COLOR,URINE YELLOW (YELLOW); LEUKOCYTE ESTERASE ,URINE NEGATIVE (NEGATIVE); NITRITE, URINE NEGATIVE (NEGATIVE); PH,URINE 5.5 (5.0-8.0); PROTEIN,URINE TRACE mg/dl (NEGATIVE); UGLUCOSE NEGATIVE (NEGATIVE); UROBILINOGEN,URINE 0.2 EU/dL (0.2)
[2022-02-13 17:55] LABS: BACTERIA,URINE None seen /HPF (None Seen); MUCUS,URINE Many /LPF (None Seen); RBC,URINE 0-2 /HPF (0-2); WBC,URINE 0-2 /HPF (0-3)
--- NOTE | 2022-02-13 19:34 | NUR ---
MS RN CLOSING NOTE Patient in bed, resting. A/O x 1, verbally responsive. On O2 at 2 LPM, breathing evenly and unlabored. No SOB or s/s of distress noted. IV access dislodged after patient was insisting to get up to go to the bathroom. Assisted patient to bedside commode instead. Endorse to shift production associate nurse that patient needs IV re-insertion. Needs attended to. due meds given. Safety precautions maintained: bed in low, locked position; siderails up x 2; call light within reach. Will endorse to shift production associate nurse for MARCELA.
--- NOTE | 2022-02-13 19:53 | NUR ---
MS RN OPENING NOTE Received Patient in bed, asleep. A/O x 0,On O2 at 2 LPM, breathing evenly and unlabored. No SOB or s/s of distress noted. Safety precautions in place: bed in low, locked position; siderails up x 2; call light within reach. will continue to monitor.
[2022-02-13 20:00] VITALS: BP 109/53
[2022-02-13] MEDS: ENOXAPARIN SODIUM 40 MG/0.4 ML DISP.SYRIN SQ SCH (20:44)
--- NOTE | 2022-02-14 06:29 | NUR ---
MS RN OPENING NOTE; Patient in bed asleeping..aox-o.on o2 at 2lpm aden well.breathing evenly and unlabored. No SOB or s/s of distress noted.due meds given as ordered.all needs attended.iv access on lfa 20g patent and intact.infusing ns @ 75 cc/hr. Safety precautions in place: bed in low, locked position; siderails up x 2; call light within reach. will endorsed to next shift.
--- NOTE | 2022-02-14 07:21 | NUR ---
WOUND CARE CONSULT: PT PRESENTS VERY THIN AND BONY. RECOMMENDATIONS MADE FOR SKIN PROTECTION. DISCUSSED WITH NURSING STAFF. MD IN AGREEMENT WITH PLAN OF CARE.
--- NOTE | 2022-02-14 07:48 | NUR ---
RN OPENING NOTE PATIENT AWAKE IN BED RESTING. A/O X 1. NO S/S OF PAIN NOTED AT THIS TIME. ON 2L OXYGEN, NO DISTRESS OR SHORTNESS OF BREATH NOTED. IV ACCESS LFA #20G, INTACT, PATENT AND FLUSHING WELL. FALL AND SAFETY MEASURES IN PLACE, BED ALARM ON, BED IN LOW AND LOCK POSITION, CALL LIGHT AND TABLE WITHIN EASY REACH, SIDE RAILS UP X2. WILL CONTINUE TO MONITOR.
[2022-02-14] MEDS: PROSOURCE / PROSTAT (PYXIS) 30 ML UDC PO SCH ×2 (08:33→16:44)
[2022-02-14] MEDS: LEVETIRACETAM (500MG) 500 MG in IV NS 0.9% 100 ML IV SCH (08:33)
[2022-02-14] MEDS: PANTOPRAZOLE 40 MG TABLET.DR PO SCH (08:34)
[2022-02-14] MEDS: hydrALAZINE HCL 50 MG TABLET PO SCH ×2 (08:34→16:46)
[2022-02-14] MEDS: ASPIRIN 81 MG TAB.CHEW PO SCH (08:35)
[2022-02-14] MEDS: MINOXIDIL (2.5MG) 2.5 MG TABLET PO SCH ×2 (08:35→16:45)
[2022-02-14] MEDS: DOXYCYCLINE 100 MG in IV D5W 100 ML IV SCH (09:28)
[2022-02-14] MEDS ORDERED: ENOX40DI SQ (11:38)
[2022-02-14] MEDS ORDERED: AMIN946L5 PO (11:38)
[2022-02-14] MEDS ORDERED: DOXY-326 PO (11:38)
[2022-02-14] MEDS: IV NS 0.9% 1,000 ML IV PRN (13:16)
[2022-02-14 16:46] VITALS: BP 105/60
--- NOTE | 2022-02-14 19:18 | NUR ---
RN CLOSING NOTE PATIENT AWAKE IN BED RESTING. A/O X 1. NO S/S OF PAIN NOTED AT THIS TIME. ON 2L OXYGEN, NO DISTRESS OR SHORTNESS OF BREATH NOTED. IV ACCESS LFA #20G, INTACT, PATENT AND FLUSHING WELL. FALL AND SAFETY MEASURES IN PLACE, BED ALARM ON, BED IN LOW AND LOCK POSITION, CALL LIGHT AND TABLE WITHIN EASY REACH, SIDE RAILS UP X2. PATIENT WILL BE DISCHARGE TO [facility], MUD ANALYSIS WELL LOGGING OPERATOR TIME AT 19:20 DISCHARGE PAPER DONE, SKIN ASSESSMENT DONE AND PICTURES TAKEN, REPORT GIVEN TO BISI AT [facility]. WILL ENDORSE TO RECONSIGNMENT CLERK.
--- NOTE | 2022-02-14 20:41 | NUR ---
MS/TELE/RN RECEIVED PATIENT AT 1930 LYING IN BED AWAKE, ALERT, ORIENTED X 1, NO SIGNS OF DISTRESS NOTED, DAUGHTER AT BEDSIDE. 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 ATTEMPTED TO GIVE LOVENOX, AND KEPPRA BEFORE D/C, BUT DAUGHTER QUESTIONED ABOUT LOVENOX. DAUGHTER WANTS TO KNOW WHY PATIENT IS ON LOVENOX AND NOT ON PLAVIX. EXPLAINED TO DAUGHTER THAT LOVENOX IS A DVT PROPHYLAXIS, BUT PATIENT WANTED TO TALK TO DR. YAO FIRST. SENT MESSAGE TO DR. YAO RE: PATIENT CONCERN. DR. YAO REPLIED THAT LOVENOX IS A DVT PROPHYLAXIS, INFORMED DAUGHTER RE: DR. YAO'S EXPLANATION. DAUGHTER AT THIS POINT AGREEABLE TO GO. AMBULANCE HERE AT AROUND 20:00, PAPER WORKS WERE SIGNED BY THE DAUGHTER, COPY GIVEN TO HER, IV REMOVED, BELONGINGS GIVEN BACK. PATIENT LEFT THE UNIT IN STABLE CONDITION, BP 128/63, HR 88, R 19, TEMP 98.0, O2 SAT 95% ON RA. CALLED [facility], SPOKE TO DEON, GAVE REPORT ABOUT LOVENOX.
[2022-02-14] MEDS ORDERED: LEVETIRACETAM (250 MG) 250 MG TABLET PO SCH (21:00)
== END 2022-02-14 20:35 | DRG 640 ==
LOC: ER 14:08 → MED 19:38
PROVIDERS: ADMIT Nurse Practitioner Acute Care; ATTEND Nurse Practitioner Acute Care
DX: R62.7 Adult failure to thrive (principal); N17.0 Acute kidney failure with tubular necrosis; I50.32 Chronic diastolic (congestive) heart failure; F11.20 Opioid dependence, uncomplicated; D83.9 Common variable immunodeficiency, unspecified; G89.4 Chronic pain syndrome; I67.9 Cerebrovascular disease, unspecified; G40.909 Epilepsy, unspecified, not intractable, without status epilepticus; I25.10 Atherosclerotic heart disease of native coronary artery without angina pectoris; Z20.822 Contact with and (suspected) exposure to COVID-19; I11.0 Hypertensive heart disease with heart failure; Z86.73 Personal history of transient ischemic attack (TIA), and cerebral infarction without residual deficits; Z88.0 Allergy status to penicillin; Z88.2 Allergy status to sulfonamides; Z88.8 Allergy status to other drugs, medicaments and biological substances; Z88.1 Allergy status to other antibiotic agents; Z91.011 Allergy to milk products; Z79.02 Long term (current) use of antithrombotics/antiplatelets; M81.0 Age-related osteoporosis without current pathological fracture; Z79.899 Other long term (current) drug therapy; Z82.49 Family history of ischemic heart disease and other diseases of the circulatory system; Z98.61 Coronary angioplasty status; M47.812 Spondylosis without myelopathy or radiculopathy, cervical region; M48.02 Spinal stenosis, cervical region; K29.70 Gastritis, unspecified, without bleeding; F32.A Depression, unspecified; T40.605A Adverse effect of unspecified narcotics, initial encounter; Y92.9 Unspecified place or not applicable
CPT/HCPCS: 36415; 70450-TC; 71045-TC; 72125-TC; 80048-TC; 80053-TC; 80061-TC; 80076-TC; 81001; 82140-TC; 82962-TC; 83540-TC; 83605-TC; 83735-TC; 83880; 84100-TC; 84443-TC; 84484-TC; 85025-TC; 85730-TC; 87040-TC; 87081-TC; 87086-TC; 92526; 92611-TC; 93307-TC; 97112-TC; 97530-TC; C9803; G0378; J1650; J1953; J3490; J7030; J7040; J7060

== ENCOUNTER 2022-02-22 18:51 | Emergency (ER) | payer BC, MEDICARE ==
[~2022-02-22] VITALS: Ht 167.6 cm; Wt 68.0 kg
[~2022-02-22 18:51] MED LIST changes: +AMIN946L5 PO; +DOXY-326 PO; +ENOX40DI SQ; -IMMU10VI8 IV; -PROC10TA29 PO
--- NOTE | 2022-02-22 19:20 | NUR ---
RECEIVED PT IN ROOM 11, PT IS RESTING IN BED WITH DAUGHTER AT BEDSIDE. DAUGHTER STATES, "DECLINING ADLS AND ORIENTATION STATUS" PT ALSO HAD GLF AND ADMITS TO HEAD TRAUMA. CONNECTED TO MONITOR. WILL CONTINUE TO MONITOR.
--- NOTE | 2022-02-22 19:29 | NUR ---
PT TAKEN TO CT SCAN VIA RASHAWN
--- NOTE | 2022-02-22 19:40 | NUR ---
PT RETURNED FROM CT SCAN
--- NOTE | 2022-02-22 20:53 | NUR ---
Patient discharged to home in stable condition. Written and verbal after care instructions given. Patient verbalizes understanding of instruction.
[2022-02-22 21:01] VITALS: BP 124/61
== END 2022-02-22 21:01 | disposition home or self-care (01) ==
LOC: ER 18:59
DX: R53.81 Other malaise (principal); I10 Essential (primary) hypertension; M81.0 Age-related osteoporosis without current pathological fracture; Z88.0 Allergy status to penicillin; Z88.2 Allergy status to sulfonamides; Z88.6 Allergy status to analgesic agent; Z88.1 Allergy status to other antibiotic agents; Z88.8 Allergy status to other drugs, medicaments and biological substances; Z91.011 Allergy to milk products; Z91.048 Other nonmedicinal substance allergy status; Z79.899 Other long term (current) drug therapy; W19.XXXA Unspecified fall, initial encounter; Y93.89 Activity, other specified; Y92.009 Unspecified place in unspecified non-institutional (private) residence as the place of occurrence of the external cause; Y99.8 Other external cause status
CPT/HCPCS: 70450-TC; 71045-TC; 72125-TC